=== PATIENT | male | born 1970 | race African-American/Black ===

== ENCOUNTER 2016-12-01 16:51 | Inpatient (IN) ==
[2016-12-01] MEDS ORDERED: SODIUM CHLORIDE 0.9% 1,000 ML IV STA (18:08)
[2016-12-01 18:15] LABS: Basophils % 0.6 % (0.0-0.8); Eosinophils # 0.1 10*3/uL (0.0-0.87); Eosinophils % 1.6 % (0.00-10.9); Hematocrit 20.6 VOL% (42.0-52.0); Immature Granulocytes % 2.4 %; Immature Granulocytes Absolute 0.12 #; Lymphocytes # 1.4 10*3/uL (1.4-4.0); Lymphocytes % 29.3 % (21.2-54.2); Mean Corpuscular HGB Conc 31.6 GM/DL (32-36); Mean Corpuscular Hemoglobin 30 PG (27-34); Mean Corpuscular Volume 93.6 FL (87-102); Monocytes # 1.3 10*3/uL (0.11-0.8); Monocytes % 26.7 % (1.7-12.7); NRBC # 0.67 10*3/uL; Neutrophils # 1.9 10*3/uL (1.4-7.4); Neutrophils % 39.4 % (38.7-73.9); Platelet Count 93 T/CUMM (130-400); Red Cell Distribution Width 19.4 % (9.3-17.3); White Blood Count 4.9 T/CUMM (4-12)
[2016-12-01] MEDS ORDERED: ONDANSETRON 4 MG/2 ML VIAL IV STA (18:15)
[2016-12-01] MEDS ORDERED: MORPHINE 2 MG/1 ML SYRINGE IV STA (18:15)
[2016-12-01 18:18] LABS: Hemoglobin 6.5 GM/DL (14.0-18.0)
[2016-12-01] MEDS ORDERED: ONDANSETRON 4 MG/2 ML VIAL ONE (18:18)
[2016-12-01] MEDS ORDERED: MORPHINE 2 MG/1 ML SYRINGE ONE (18:18)
--- NOTE | 2016-12-01 18:32 | CT Report ---
Exam: CT head without intravenous contrast Clinical History: 46 years Male vertigo, facial numbness Technique: Axial computed tomography images of the head/brain without intravenous contrast. The CT exam was performed using one or more of the following dose reduction techniques: Automated exposure control, adjustment of the mA and/or kV according to patient size, or use of iterative reconstruction technique. Comparison: No relevant comparisons Findings: Brain: Mild microangiopathic small vessel ischemic changes within the superior ventricular white matter. Allen-white matter distinction maintained. No mass effect. No intra or extra-axial hemorrhage. Ventricles: Unremarkable. No ventriculomegaly. Bones/joints: Calvarium is intact Soft tissues: Unremarkable Sinuses: No active paranasal sinus process Mastoid air cells: Unremarkable as visualized. Impression: 1. No acute intracranial abnormality PROCEDURE INTERPRETED AT [facility] DEPARTMENT OF RADIOLOGY Final Report Signed by: Hansel Allen MD
[2016-12-01 18:33] LABS: Platelet Estimate Decreased
[2016-12-01 18:44] LABS: Albumin 3.4 G/DL (3.4-5.0); Bilirubin,Total 0.6 MG/DL (0.2-1.0); Calcium 8.7 MG/DL (8.5-10.1); Magnesium 1.5 MG/DL (1.8-2.4); Osmolality,Calculated 272.7 MOS/KG (273-304); Potassium 3.6 MMOL/L (3.5-5.1); Total Protein 6.4 G/DL (6.4-8.3)
--- NOTE | 2016-12-01 19:17 | Emergency Department Note ---
Arrival - Arrival Chief Complaint: Back Stated Complaint: groin pain ED Nursing Triage Note: pt to room via [facility] stretcher. pt states he has pelvis pain that radiates to groin and bilateral lower ext. x 3 months.. pt was seen at [facility] last night and treated for arthritis per dc papers. Mode of Arrival: Stretcher Limitations: No Limitations Source: Patient, Old Records Reviewed, RN Notes Reviewed Time Seen by Provider: 12/01/16 18:05 - History of Present Illness HPI Narrative: The patient complains of pelvic pain radiating into both upper thighs since June. It has worsened in the past few weeks and he is now barely able to ambulate. He also reports weakness and dizziness upon standing. He was seen for this at [facility] last night and reportedly had a CT which found multiple lesions in the pelvis suggestive of metastatic disease. I have not been able to get that study or the report yet. He also had blood work done which showed a hemoglobin of 7.4 and had a hematocrit of 23.7. He also had a alkaline phosphatase of 626. Patient denies any blood in the stool or melena. He does report a 35-40 pound weight loss since June. He says this is due to numbness of the left side of his tongue. He also says that sometimes the lateral left foot goes numb. The patient was admitted here back in March for hematuria and urinary retention and found to have an enlarged prostate. A CT done at that time makes no mention of any sclerotic bone lesions. The patient says that he had an MRI sometime a few months ago that did show these lesions however he is not really clear on this. He denies any fever, cough, rhinorrhea or other recent illness. He is a heavy drinker and drinks a sixpack plus per day. When admitted here in March he had signs of alcoholic hepatitis. Allergies/Adverse Reactions: Allergies Allergy/AdvReac Type Severity Reaction Status Date / Time No Known Allergies Allergy Verified 12/01/16 17:07 Home Medications: Home Medications Medication Instructions Recorded Confirmed Type Lisinopril 20 mg PO DAILY 03/06/15 03/06/15 History Tamsulosin [Flomax] 0.4 mg PO DAILY 03/06/15 03/06/15 History Ciprofloxacin Tab [Cipro Tab] 500 mg PO BID #14 tablet 03/09/15 Rx HYDROcodone/ACETAMIN 5-325 [Morley 1 tablet PO Q6H PRN #30 tablet 03/09/15 Rx 5-325] amLODIPine [Norvasc] 5 mg PO DAILY #30 tablet 03/09/15 Rx metroNIDAZOLE TAB [Flagyl Cap/Tab] 500 mg PO TID #20 tablet 03/09/15 Rx Review of System - Review of System 12 point system: reviewed and no additional remarkable complaints except as stated - Review of System Constitutional: Present: weakness. Absent: fever Head/Ears/Nose/Throat: Absent: nasal drainage, sore throat Respiratory: Absent: cough, respiratory distress Cardiovascular: Absent: chest pain Gastrointestinal: Absent: abdominal pain, nausea, vomiting Genitourinary male: Absent: dysuria, hematuria Musculoskeletal: Present: back pain, lower back pain, leg pain (Bilateral hips and upper thighs, right greater than left), other (Pelvic pain) Medical,Surgical,& Family Hx - Medical History Cardio: History of: Hypertension Psychological: History of: Psychiatric/Substance Abuse Tx (Alcohol) Genitourinary: History of: Prostate Problems Gastrointestinal: History of: Hepatitis No history of: Gastrointestinal Bleed - Surgical History Surgical History: noncontributory - Family History Family History: Reports;: Family Heart Disease, Family Hypertension, Family Stroke Denies;: Family Diabetes - Social History Smoking Status: Never smoker Frequency of Alcohol Use: None Type of Drug Use: None Exam Physical Examination: GENERAL: Alert. No acute distress. HEENT: Normocephalic and atraumatic. PERRLA. EOMI. Conjunctivae are pale. There is no nasal drainage. No pharyngeal erythema or exudate. NECK: Normal inspection. Supple. No lymphadenopathy or meningismus. LUNGS: No respiratory distress. Clear to auscultation bilaterally, no wheezes, rales or rhonchi. HEART: Regular rate and rhythm. ABDOMEN: Soft, nontender and nondistended with normoactive bowel sounds. There is tenderness of the pubic and pelvic bones. BACK: Normal inspection. SKIN: Color normal. Warm and dry. EXTREMITIES: Nontender. Decreased range of motion both lower extremities at the hip and knees due to pain. Right is worse than left. There is no edema, ecchymosis or deformity. The distal extremities are neurovascularly intact. NEUROLOGICAL/PSYCHIATRIC: Alert and oriented -3 with normal mood and affect. Cranial nerves normal. No motor or sensory deficit. Vital Signs: Vital Signs Temperature 98.1 F 12/01/16 16:50 Pulse Rate 93 H 12/01/16 18:30 Respiratory Rate 18 12/01/16 18:30 Blood Pressure 157/99 12/01/16 18:30 O2 Sat by Pulse Oximetry 99 12/01/16 18:30 Course - Reevaluation(s) Reevaluation #1: I have not been able to get the CT scans from [facility] but from what I have heard this sounds like metastatic disease. The source is unclear but given his past admission here for urinary retention, I would suspect prostate. This will need to be investigated further. Acutely he has anemia and is going to need transfusion. I have discussed the patient with the hospitalist service who will see him and admit. Time: 19:36 Results - Labs CBC & BMP: 12/01/16 18:01 12/01/16 18:01 Disposition Clinical Impression: Anemia, Alcohol abuse, Metastatic disease, Pelvic pain Case discussed with: patient, patient's family Disposition: Still a Patient Condition: Stable Time of Disposition: 19:39
--- NOTE | 2016-12-01 20:11 | Hospitalist History & Physical ---
Assessment and Plan - Time spent with patient Time spent with patient: Greater than 30 minutes (1) Anemia Status: Acute Assessment and plan: Patient does have a significant symptomatic anemia at this time and is tachycardic. Will obtain anemia studies and transfuse 2 units packed red blood cells this evening. Will check stools for occult blood and further diagnostic evaluation based on her pending database. Because of his significant anemia at this time we will provide mechanical DVT prophylaxis only. Current Visit: Yes (2) Metastatic disease Status: Acute Assessment and plan: Patient reportedly has a CT scan from [facility] which reports lesions in the pelvis consistent with possible metastatic disease. Will obtain these records and proceed as indicated. Current Visit: Yes (3) Alcohol abuse Status: Acute Assessment and plan: Patient admits to daily alcohol intake. We will hydrate and provide multivitamin and thiamine supplementation along with benzodiazepines as needed. Current Visit: Yes (4) Hypertension Status: Chronic Assessment and plan: Patient has history of chronic essential hypertension which is currently well controlled. Continue his current medical regimen. Current Visit: No Qualifiers: Hypertension type: essential hypertension Qualified Code(s): I10 - Essential (primary) hypertension History of Present Illness Chief complaint: Bilateral hip and lower extremity pain History of present illness: Mr. Stewart is a 46 year old -[place] male who states he has had approximately 3 month history of lower extremity weakness with progressive pain in his hips radiating down both lower extremities. He states he had approximately 40 pound weight loss in the past 3 months and has had a decreased appetite because of altered taste. He had noticed some bright and dark red blood in the stool approximately 1 month ago however this is resolved. He denies any hematuria but states that he was treated for prostate infection several months ago. Last evening he went to the emergency department at [facility] and was evaluated there and apparently had CT of his abdomen and pelvis which apparently revealed lesions possibly secondary to metastatic disease however we are unable to obtain this report at present. He also states that he has been taken ibuprofen until it no longer controlled his pain, followed by Naprosyn, followed by BC powders which he was told to discontinue last evening. He came back to the emergency room at [facility] for further evaluation and control of his pain. He denies any bowel or bladder incontinence or lower extremity paresthesias. He notes fleeting right and left anterior chest pain lasting only for a few seconds. He also notes some dyspnea which is primarily with exertion. He denies any fever, chills, cough, sputum production, hematuria, dysuria. He does occasionally have some dizziness with sitting upright rapidly. He does not smoke but does admit to drinking almost on a daily basis. He denies any illicit drug use. His only past medical history is significant for hypertension which is controlled with 2 drugs. He has had no prior surgery. His family history is significant for diabetes in his father. His medications have been reviewed and reconciled. He is a full code. Home Medications Medication Instructions Recorded Confirmed Type Lisinopril 20 mg PO DAILY 03/06/15 12/01/16 History Tamsulosin [Flomax] 0.4 mg PO DAILY 03/06/15 12/01/16 History amLODIPine [Norvasc] 5 mg PO DAILY #30 tablet 03/09/15 12/01/16 Rx Allergies Allergy/AdvReac Type Severity Reaction Status Date / Time No Known Allergies Allergy Verified 12/01/16 17:07 Medical,Surgical,& Family Hx - Medical History Cardio: History of: Hypertension Psychological: History of: Psychiatric/Substance Abuse Tx (Alcohol) Genitourinary: History of: Prostate Problems Gastrointestinal: History of: Hepatitis No history of: Gastrointestinal Bleed - Surgical History Additional Surgical History: Patient has had no surgical intervention today. - Family History Family History: Reports;: Family Heart Disease, Family Hypertension, Family Stroke Denies;: Family Diabetes - Social History Smoking Status: Never smoker Frequency of Alcohol Use: Frequently Type of Drug Use: None 12 point system: reviewed and no additional remarkable complaints except as stated Exam - Constitutional Vitals: Period Temp Pulse Resp BP Sys/Lucero Pulse Ox Last 24 Hr 98.1 F-98.1 F 93-113 18-20 152-165/94-110 97-100 General appearance: no acute distress - Head Head exam: Present: normocephalic, atraumatic - Eye Eye exam: Present: EOMI. Absent: nystagmus, scleral icterus Pupils: Present: BISHOP - ENT ENT exam: Present: normal oropharynx - Neck Neck exam: Present: normal inspection. Absent: lymphadenopathy, meningismus, tenderness, thyromegaly - Respiratory Respiratory exam: Present: clear to auscultation bilaterally. Absent: rales, rhonchi, wheezes - Cardiovascular Cardiovascular exam: Present: regular rate and rhythm, tachycardia. Absent: carotid bruit, gallop, JVD, systolic murmur - GI/Abdominal GI/Abdominal exam: Present: normal bowel sounds, soft, other (There is noted tenderness to minimal palpation in the right groin over there is no palpable mass or hernia detected. Femoral pulses are 2+ and intact). Absent: distended , guarding, hernia, mass, organomegaly, tenderness, rebound - Extremities Exam Extremities exam: Present: normal capillary refill. Absent: calf tenderness, edema - Back Exam Back exam: Present: vertebral tenderness (Mild vertebral and paravertebral tenderness approximately L3-4 level). Absent: positive straight leg raise - Neurological Exam Neurological exam: Present: alert, oriented X3, CN II-XII intact, reflexes normal. Absent: motor sensory deficit - Psychiatric Psychiatric exam: Present: normal affect, normal mood. Absent: agitated, anxious - Skin Skin exam: Present: warm, dry. Absent: erythema, petechiae, rash Results - Labs CBC & BMP: 12/01/16 18:01 12/01/16 18:01 Lab Results: I have reviewed the past 24 hour labs - Diagnostic Findings Procedure: CT: report reviewed by me
--- NOTE | 2016-12-01 20:12 | XRay Report ---
Portable chest Exam date: 12/01/2016 6:07 PM Indication: Shortness of breath, cough Comparison: Not available Findings: Cardiomediastinal contours are normal. Question central interstitial coarsening. No acute osseous abnormalities. Visualized upper abdomen demonstrates no acute pathology. Impression: Question interstitial coarsening, cannot exclude diffuse inflammatory process. Findings could be artifactual related to low lung volumes and lordotic positioning. Correlate with upright PA and lateral chest to further characterize PROCEDURE INTERPRETED AT [facility] DEPARTMENT OF RADIOLOGY Final Report Signed by: Hansel Allen MD
[2016-12-01 21:01] LABS: Folate 5.4 NG/ML (5.4-24.0); Vitamin B12 578 PG/ML (211-911)
[2016-12-01] MEDS ORDERED: ZALEPLON 5 MG CAPSULE PO PRN (21:22)
[2016-12-01] MEDS ORDERED: SODIUM CHLORIDE 0.9% 250 ML IV PRN (21:22)
[2016-12-01] MEDS ORDERED: MAGNESIUM SULF RIDER 2 GM in PREMIX 1 EACH IV ONE (21:22)
[2016-12-01] MEDS ORDERED: MULTIVITAMIN INJ 10 ML in SODIUM CHLORIDE 0.45% 1,000 ML IV SCH (21:22)
[2016-12-01] MEDS ORDERED: ONDANSETRON 4 MG/2 ML VIAL IV PRN (21:22)
[2016-12-01] MEDS ORDERED: SODIUM CHLORIDE 0.9% 1,000 ML IV SCH (21:22)
[2016-12-01] MEDS: MORPHINE 2 MG/1 ML SYRINGE IV PRN (21:29)
[2016-12-01] MEDS: LORazepam 1 MG TABLET PO PRN (22:14)
[2016-12-01 22:21] LABS: Total Protein 6.4 G/DL (6.4-8.3)
[2016-12-01] MEDS ORDERED: MULTIVITAMIN IV SCH (23:00)
[2016-12-01] MEDS ORDERED: [UNRECOGNIZED DRUG - OTHER] IV SCH (23:00)
[2016-12-01] MEDS ORDERED: SODIUM CHLORIDE IV SCH (23:00)
[2016-12-02] MEDS: MULTIVITAMIN IV SCH ×4 (00:41→18:03)
[2016-12-02] MEDS: [UNRECOGNIZED DRUG - OTHER] IV SCH ×4 (00:41→18:03)
[2016-12-02] MEDS: SODIUM CHLORIDE IV SCH ×4 (00:41→18:03)
[2016-12-02] MEDS: MORPHINE 2 MG/1 ML SYRINGE IV PRN ×2 (01:09→20:38)
[2016-12-02] MEDS: LORazepam 1 MG TABLET PO PRN ×2 (06:03→19:54)
[2016-12-02 06:31] LABS: Apearance,Urine CLEAR (Clear); Bilirubin,Urine Negative (Negative); Blood, Urine Negative (Negative); Glucose,Urine (UA) Negative (Negative); Ketones,Urine Negative (Negative); Mucus,Urine Occasional /LPF (Occasional); Nitrite,Urine Negative (Negative); Protein,Urine 30 MG/DL; RBC,Urine 2 /HPF (0-4); Urine Color Yellow (Yellow); Urine Specific Gravity 1.016 (1.001-1.035); Urine Urobilinogen < 2.0 EU/DL (0.2-1.0); WBC,Urine 1 /HPF (0-6)
[2016-12-02 07:18] LABS: Basophils # 0.1 10*3/uL (0.0-0.2); Basophils % 1.1 % (0.0-0.8); Eosinophils # 0.1 10*3/uL (0.0-0.87); Eosinophils % 1.4 % (0.00-10.9); Immature Granulocytes % 2.5 %; Immature Granulocytes Absolute 0.11 #; Lymphocytes # 1.1 10*3/uL (1.4-4.0); Lymphocytes % 23.9 % (21.2-54.2); Mean Corpuscular HGB Conc 32.2 GM/DL (32-36); Mean Corpuscular Hemoglobin 30 PG (27-34); Mean Corpuscular Volume 91.5 FL (87-102); Mean Platelet Volume 10.6 FL (9.6-12.0); Monocytes # 1.1 10*3/uL (0.11-0.8); Monocytes % 25.9 % (1.7-12.7); NRBC # 0.53 10*3/uL; Neutrophils % 45.2 % (38.7-73.9); White Blood Count 4.4 T/CUMM (4-12)
[2016-12-02 07:23] LABS: Hemoglobin 8.7 GM/DL (14.0-18.0); Platelet Count 85 T/CUMM (130-400); Red Blood Count 2.95 MC/CUMM (3.8-5.5)
[2016-12-02 07:57] LABS: Band Neutrophils 3 % (0-10); Eosinophils 1 % (0-10); Hypochromasia 1+; Lymphocytes 27 % (20-55); Microcytosis Slight; Nucleated Red Blood Cells 9 (0-5); Ovalocytes Slight; Platelet Estimate Decreased; Segmented Neutrophils 53 % (50-85); Total Cells Counted 100
[2016-12-02 07:58] LABS: Albumin 3.2 G/DL (3.4-5.0); Calcium 8.3 MG/DL (8.5-10.1); Magnesium 2.1 MG/DL (1.8-2.4); Potassium 3.2 MMOL/L (3.5-5.1); Thyroid Stimulating Hormone 0.558 uIU/ml (0.358-3.74); Total Protein 6.2 G/DL (6.4-8.3)
[2016-12-02 08:02] LABS: Hemoglobin A1 (Alkaline) 97.4 % (96.5-98.5); Hemoglobin A2 (Alkaline) 2.6 % (1.5-3.5)
[2016-12-02] MEDS: THIAMINE 200 MG/2 ML VIAL IV SCH (09:19)
[2016-12-02] MEDS: TAMSULOSIN 0.4 MG CAPSULE PO SCH (09:19)
[2016-12-02] MEDS: LISINOPRIL 20 MG TABLET PO SCH (09:19)
[2016-12-02] MEDS: PANTOPRAZOLE 40 MG TABLET PO SCH (09:19)
[2016-12-02] MEDS: amLODIPine 5 MG TABLET PO SCH (09:19)
[2016-12-02 10:02] LABS: Basophils # 0.1 10*3/uL (0.0-0.2); Basophils % 1.3 % (0.0-0.8); Eosinophils # 0.1 10*3/uL (0.0-0.87); Eosinophils % 1.6 % (0.00-10.9); Hematocrit 26.5 VOL% (42.0-52.0); Hemoglobin 8.8 GM/DL (14.0-18.0); Immature Granulocytes % 2.2 %; Lymphocytes # 1.1 10*3/uL (1.4-4.0); Lymphocytes % 23.5 % (21.2-54.2); Mean Corpuscular HGB Conc 33.2 GM/DL (32-36); Mean Corpuscular Hemoglobin 30 PG (27-34); Mean Corpuscular Volume 91.4 FL (87-102); Mean Platelet Volume 10.4 FL (9.6-12.0); Monocytes # 1.2 10*3/uL (0.11-0.8); Monocytes % 27.1 % (1.7-12.7); NRBC # 0.58 10*3/uL; Neutrophils % 44.3 % (38.7-73.9); Platelet Count 75 T/CUMM (130-400); Red Cell Distribution Width 17.1 % (9.3-17.3); White Blood Count 4.5 T/CUMM (4-12)
[2016-12-02 11:05] LABS: Sedimentation Rate-Westergren 70 MM/HR (0-15)
[2016-12-02 11:17] LABS: Total Protein (Chem) 6.4 G/DL (6.4-8.3)
[2016-12-02] MEDS ORDERED: POTASSIUM CHLORIDE 20 MEQ TABLET PO ONE (15:53)
--- NOTE | 2016-12-02 16:03 | Hospitalist Progress Note ---
Assessment and Plan (1) Metastatic disease Status: Acute Assessment and plan: 1)hip and thigh pain that is so severe he has stopped working and has trouble getting around- check bone scan. consult urology. get records from [facility] of [place] and from DR Lee from this summer. Control pain with oral meds and IV if needed. H&H stable No sign of DTs at this time. ativan prn and if ativan needed, start librium. Current Visit: Yes (2) Anemia Status: Acute Current Visit: Yes (3) Alcohol abuse Status: Acute Current Visit: Yes (4) Pelvic pain Status: Acute Current Visit: Yes Hospitalist: Subjective Interval history: MR Stewart's leg pain started on August 31. He went to [facility] adn had hematuria and was referred to Dr Lee. The patient says he doesn't know if he had a PSA and that he had prostatitis at that time. His hematuria resolved. Since that time he continued to have leg pain and was taking BC powder when advil didn;t help anymore. At this point the BCpowders aren't enough either. He has had to stop working. He is and has adult children. His parents are here with him at this time. He had a CT scan at [facility] on 11/30 and the ER and [facility] med attendings comment that the findings look like progressive metastatic disease and that he should have it followed up. We don't have the CT report. I have requested records from Dr Lee and the CT from [facility]. His PSA now is 2950. Sed rate elevated. anemic. Repeat plain films of hips and femurs today. Exam - Constitutional Vitals: Period Temp Pulse Resp BP Sys/Lucero Pulse Ox Last 24 Hr 98 F-99.4 F 93-122 16-20 126-165/87-110 93-100 General appearance: normal weight, no acute distress - Eye Eye exam: Present: EOMI. Absent: scleral icterus - Respiratory Respiratory exam: Present: clear to auscultation bilaterally - Cardiovascular Cardiovascular exam: Present: regular rate and rhythm - GI/Abdominal GI/Abdominal exam: Present: normal bowel sounds, soft. Absent: tenderness - Extremities Exam Extremities exam: Present: other (not tender in hips or femurs where he indicates he has pain). Absent: edema - Back Exam Back exam: Absent: vertebral tenderness Results - Labs CBC & BMP: 12/02/16 06:55 12/02/16 06:55 Lab Results: I have reviewed the past 24 hour labs Quality Measures - VTE Contraindication to Pharmacological VTE Prophylaxis: High Risk of Bleeding
[2016-12-03 06:17] LABS: Basophils % 1.1 % (0.0-0.8); Eosinophils # 0.1 10*3/uL (0.0-0.87); Eosinophils % 1.7 % (0.00-10.9); Hematocrit 24.3 VOL% (42.0-52.0); Immature Granulocytes % 2.2 %; Immature Granulocytes Absolute 0.08 #; Lymphocytes # 1.3 10*3/uL (1.4-4.0); Mean Corpuscular HGB Conc 32.9 GM/DL (32-36); Mean Corpuscular Hemoglobin 30 PG (27-34); Mean Corpuscular Volume 91.7 FL (87-102); Monocytes # 0.8 10*3/uL (0.11-0.8); Monocytes % 22.9 % (1.7-12.7); NRBC # 0.36 10*3/uL; Neutrophils # 1.3 10*3/uL (1.4-7.4); Neutrophils % 35.1 % (38.7-73.9); Red Blood Count 2.65 MC/CUMM (3.8-5.5); Red Cell Distribution Width 17.2 % (9.3-17.3); White Blood Count 3.6 T/CUMM (4-12)
[2016-12-03 06:20] LABS: Platelet Count 86 T/CUMM (130-400)
[2016-12-03 06:51] LABS: Band Neutrophils 1 % (0-10); Giant Platelets Few; Hypochromasia 1+; Lymphocytes 42 % (20-55); Nucleated Red Blood Cells 10 (0-5); Ovalocytes Slight; Platelet Estimate Decreased; Polychromasia Slight; Segmented Neutrophils 41 % (50-85); Total Cells Counted 100
[2016-12-03 06:52] LABS: Atypical Lymphocytes Few
[2016-12-03 06:53] LABS: Alanine Aminotransferase < 9 U/L (16-61); Albumin 2.7 G/DL (3.4-5.0); Alkaline Phosphatase 436 U/L (45-117); Aspartate Amino Transferase 21 U/L (0-37); Blood Urea Nitrogen 6 MG/DL (7-18); Calcium 8.1 MG/DL (8.5-10.1); Glucose 81 MG/DL (74-106); Osmolality,Calculated 273.5 MOS/KG (273-304); Potassium 3.6 MMOL/L (3.5-5.1); Sodium 139 MMOL/L (136-145); Total Protein 5.5 G/DL (6.4-8.3)
[2016-12-03 07:44] LABS: Albumin (SPE) 3.8 G/DL (3.2-5.3); Albumin (SPE) Rel % 59.7 %; Alpha 1 (SPE) 0.4 G/DL (0.1-0.4); Alpha 1 (SPE) Rel % 5.7 %; Alpha 2 (SPE) 0.7 G/DL (0.4-1.0); Alpha 2 (SPE) Rel % 10.9 %; Beta (SPE) 0.8 G/DL (0.5-1.1); Beta (SPE) Rel % 12.6 %; Gamma (SPE) 0.7 G/DL (0.7-1.7); Gamma (SPE) Rel % 11.1 %
[2016-12-03] MEDS ORDERED: LORazepam 2 MG/1 ML VIAL IV PRN (09:22)
[2016-12-03] MEDS: TAMSULOSIN 0.4 MG CAPSULE PO SCH (09:23)
[2016-12-03] MEDS: LISINOPRIL 20 MG TABLET PO SCH (09:23)
[2016-12-03] MEDS: THIAMINE 200 MG/2 ML VIAL IV SCH (09:23)
[2016-12-03] MEDS: amLODIPine 5 MG TABLET PO SCH (09:23)
[2016-12-03] MEDS: PANTOPRAZOLE 40 MG TABLET PO SCH (09:23)
--- NOTE | 2016-12-03 12:03 | Urology Consultation ---
History of Present Illness - Data of Consult Consult date: 12/03/16 - Consult Narrative History of present illness: Mr. Stewart is a 46 year old male The patient is known to me. I saw him originally in the hospital in March 2015 with a history of gross hematuria urinary retention and urinary tract infection. He was treated for BPH and was subsequently able to void. His blood and urine cultures were negative at that time but that was thought to be due to antibiotics he received as an outpatient prior to admission. He had a noncontrast CT of the abdomen and pelvis that showed no urological problems during that admission. His PSA was elevated at 8 and I thought that was probably due to his history of urinary tract infection. The patient came back to the office one time and had a negative urinalysis with resolution of the hematuria and I recommended that he return in 3 months to repeat the PSA to make sure that this had returned to normal as it would if the elevation was due to infection but the patient did not return for follow-up he is now on Flomax as a home medication and is anemic he has an elevated alkaline phosphatase and a marked elevation of his PSA of over 2000. A bone scan is pending. I am going to recommend that we assume this his prostate cancer I will start him on Casodex 3 times a day check an acid phosphatase and we will need to schedule a prostate biopsy which is usually done in the office. If the patient has prostate cancer this is probably high-grade and metastatic and we will need to start him on hormone therapy CC: Rebecca Hendricks MD - Home Medications and Allergies Home Medications: Home Medications Medication Instructions Recorded Confirmed Type Lisinopril 20 mg PO DAILY 03/06/15 12/01/16 History Tamsulosin [Flomax] 0.4 mg PO DAILY 03/06/15 12/01/16 History amLODIPine [Norvasc] 5 mg PO DAILY #30 tablet 03/09/15 12/01/16 Rx Allergies/Adverse Reactions: Allergies Allergy/AdvReac Type Severity Reaction Status Date / Time No Known Allergies Allergy Verified 12/01/16 17:07 Medical,Surgical,& Family Hx - Medical History Cardio: History of: Hypertension Psychological: History of: Psychiatric/Substance Abuse Tx (Alcohol) Respiratory: History of: Asthma (childhood asthma resolved) Genitourinary: History of: Prostate Problems Gastrointestinal: History of: Hepatitis No history of: Gastrointestinal Bleed Musculoskeletal: History of: Musculoskeletal Problems (hip pain) - Family History Family History: Reports;: Family Cancer (2 uncles panreatic and prostate), Family Heart Disease, Family Hypertension, Family Stroke Denies;: Family Diabetes - Social History Smoking Status: Never smoker Frequency of Alcohol Use: Frequently Type of Drug Use: None Exam - Constitutional Vitals: Period Temp Pulse Resp BP Sys/Lucero Pulse Ox Last 24 Hr 97.6 F-99.6 F 90-105 18-20 114-135/73-84 92-96 Results - Labs CBC & BMP: 12/03/16 05:26 12/03/16 05:26
--- NOTE | 2016-12-03 12:08 | Nuclear Medicine Report ---
NM bone scan whole body Indication: Elevated PSA, bone pain Findings: Patient was injected with 30.0 millicuries of technetium 99m MDP intravenously. Total body anterior posterior images were obtained. There is increased activity seen in multiple vertebra, pelvic bones proximal femurs ribs and sternum. There is increased activity in the skull base on the left. There is decreased soft tissue activity. Impression: Multiple areas of increased activity throughout the skeletal system with decreased soft tissue uptake consistent with large amount of osseous metastatic disease usually prostate cancer, (SuperScan). MRI may be useful to evaluate for skull base lesion causing foraminal narrowing. PROCEDURE INTERPRETED AT [facility] DEPARTMENT OF RADIOLOGY Final Report Signed by: Dr. Samy Hickman
--- NOTE | 2016-12-03 13:59 | Hospitalist Progress Note ---
Assessment and Plan (1) Metastatic disease Status: Acute Assessment and plan: 1)likely prostate cancer, metastatic to the bones- bone scan pending. Dr Ring starting casodex. will need prostate biopsy in clinic. continue pain meds. 2)alcohol dependence- drinks a 6 pack with liquor daily. No sign of DTs. ativan if needed, and if it is needed nurses to start librium too. Current Visit: Yes (2) Anemia Status: Acute Current Visit: Yes (3) Alcohol abuse Status: Acute Current Visit: Yes (4) Pelvic pain Status: Acute Current Visit: Yes Hospitalist: Subjective Interval history: Mr Stewart's pain is under better control today. He is eating ok. Dr iRng has seen him and plans to review work up results and start casodex. Exam - Constitutional Vitals: Period Temp Pulse Resp BP Sys/Lucero Pulse Ox Last 24 Hr 97.6 F-99.6 F 90-105 18-20 114-135/73-84 92-96 General appearance: normal weight, no acute distress - Eye Eye exam: Present: EOMI. Absent: scleral icterus - Respiratory Respiratory exam: Present: clear to auscultation bilaterally - Cardiovascular Cardiovascular exam: Present: regular rate and rhythm - GI/Abdominal GI/Abdominal exam: Present: normal bowel sounds, soft. Absent: tenderness - Extremities Exam Extremities exam: Absent: edema Results - Labs CBC & BMP: 12/03/16 05:26 12/03/16 05:26 Lab Results: I have reviewed the past 24 hour labs Quality Measures - VTE Contraindication to Pharmacological VTE Prophylaxis: High Risk of Bleeding
[2016-12-03] MEDS: BICALUTAMIDE 50 MG TABLET PO SCH (20:44)
[2016-12-03] MEDS: MORPHINE 2 MG/1 ML SYRINGE IV PRN (20:51)
--- NOTE | 2016-12-04 07:37 | Urology Progress Note ---
Urology - PN: Subj Interval history: The patient's bone scan is compatible with metastatic disease. The patient's PSA is almost 3000 and there is no evidence of urinary tract infection on urinalysis. Prostatic acid phosphatase is pending. It is okay with me to discharge the patient as needed I am going to send him home on Casodex 50 mg 3 times daily and will set up a prostate biopsy as an outpatient. Once a diagnosis of prostate cancer is confirmed and I am going to recommend either bilateral orchiectomy or Lupron plus continued Casodex Exam - Constitutional Vitals: Period Temp Pulse Resp BP Sys/Lucero Pulse Ox Last 24 Hr 97.6 F-98.9 F 96-100 18-20 127-136/73-87 92-98 Results - Labs CBC & BMP: 12/03/16 05:26 12/03/16 05:26
[2016-12-04] MEDS: BICALUTAMIDE 50 MG TABLET PO SCH ×2 (08:55→14:08)
[2016-12-04] MEDS: PANTOPRAZOLE 40 MG TABLET PO SCH (08:55)
[2016-12-04] MEDS: LISINOPRIL 20 MG TABLET PO SCH (08:55)
[2016-12-04] MEDS: THIAMINE 200 MG/2 ML VIAL IV SCH (08:56)
[2016-12-04] MEDS: amLODIPine 5 MG TABLET PO SCH (08:56)
[2016-12-04] MEDS: TAMSULOSIN 0.4 MG CAPSULE PO SCH (08:56)
[2016-12-04] MEDS: MORPHINE 2 MG/1 ML SYRINGE IV PRN (09:06)
[2016-12-04 13:26] VITALS: BP 139/88
[2016-12-04] MEDS ORDERED: DOCUSATE SODIUM 100 MG CAPSULE PO PRN (14:32)
--- NOTE | 2016-12-04 14:38 | Discharge Summary ---
Hospital Course - Hospital Course Hospital Course: 46-year-old -[place] male was admitted with lower extremity and hip pain. He had a recent CT scan of the abdomen pelvis done at [facility] which was suggestive of metastatic disease. He was taking NSAIDs for pain but it was not controlled, therefore he presented to [place] and was admitted to the hospitalist service. His bone scan was positive for metastatic disease, and PSA was significantly elevated at 2950. He was suspected to have metastatic prostate cancer. Dr. Ring from urology service was following. His pain is better controlled with narcotic. Dr. Ring has okayed his discharge and will do a prostate biopsy in his office, and most of the diagnosis has been confirmed he recommend bilateral orchiectomy Lupron plus Casodex. We will continue Casodex while the prostate biopsyis pending. Patient otherwise is feeling better and has reached maximal hospital benefit and being discharged home. He will see Dr. Ring back in his office in a few weeks. - Time spent with patient Time with patient DS: Less than 30 minutes Diagnosis - Discharge Diagnosis (1) Pelvic pain Status: Resolved Specialty Discharge - Follow Up or Referrals Follow up with: Srini Ring MD [Physician] - 12/07/16 10:15 am (APPT NEXT WEEK-WED, OR WED) Discharge Plan - Discharge Data Condition at Discharge: Stable Discharge Diet: advance to your usual diet Activity: resume usual activities as tolerated Hygiene: no restrictions Weight Bearing at Discharge: full weight bearing - Discharge Medications New Docusate Sodium Cap [Colace Cap] 100 mg PO BID PRN #60 capsule PRN Reason: Constipation Bicalutamide [Casodex] 50 mg PO TID #90 tablet Continue Tamsulosin [Flomax] 0.4 mg PO DAILY Lisinopril 20 mg PO DAILY amLODIPine [Norvasc] 5 mg PO DAILY #30 tablet - Follow Up or Referral Follow Up: Srini Ring MD [Physician] - 12/07/16 10:15 am (APPT NEXT WEEK-WED, OR WED) - Forms/Instructions Exam - Constitutional Vitals: Period Temp Pulse Resp BP Sys/Lucero Pulse Ox Last 24 Hr 97.6 F-98.9 F 89-100 18-20 127-139/72-88 92-98 Exam: General: No Acute Distress HEENT: Normocephalic, atraumatic, Extra ocular movements intact Neck: Supple, No JVD Chest: Clear to auscultation B/L CV: S1 + S2 audible without murmur, gallop or rub Abd: soft, NT, Non-distended, BS + Ext: No edema Skin: No purpura, bruising or rash Rheumatologic: No Joint deformities Neurologic: Awake and alert Discharge Results Procedures and tests throughout hospitalization: Pending Orders 12/01/16 20:20 Occult Blood, Stool Routine 12/03/16 05:23 Prostatic Acid Phosphatase PAP Routine DS: Provider Date of admission: 12/01/16 20:21 Primary care physician: . No PCP Attending physician on admission: Rebecca Hendricks MD Consults: 12/01/16 22:02 Consult to Dietitian [CONS] Routine Reason for Dietitian: Supplements and/or Snacks 12/03/16 09:19 Consult to Physician [CONS] Routine Comment: suspect prostate cancer with bone mets Consulting Provider: Srini Ring Consulting Provider Notified: Yes When should Consulting Provider be notified: Now Consult to Specialist Group: Urology When should Consulting Provider be notified: Now Person Notified: RAFI Date Notified: 12/03/16 Time Notified: 09:41 Discharging clinician: Raman Sheridan MD
== END 2016-12-04 15:40 | disposition home or self-care (01) | DRG 544 ==
LOC: EDUNIT# → EDBD → N.ED 16:51 → N.EDINP 20:21 → SUATTDRO 20:21 → N.EDINP 21:11 → N.4E 21:21
PROVIDERS: ADMIT Internal Medicine; ATTEND Hospitalist

== ENCOUNTER 2018-12-20 18:33 | Inpatient (IN) ==
[2018-12-20] MEDS ORDERED: PANTOPRAZOLE 40 MG VIAL IV STA (18:56)
[2018-12-20] MEDS ORDERED: ONDANSETRON 4 MG/2 ML VIAL IV STA (18:56)
[2018-12-20] MEDS ORDERED: fentaNYL 100 MCG/2 ML VIAL IV STA (18:56)
[2018-12-20 19:14] LABS: Basophils # 0.1 10*3/uL (0.0-0.2); Basophils % 0.6 % (0.0-0.8); Eosinophils % 0.1 % (0.00-10.9); Hematocrit 29.7 VOL% (42.0-52.0); Hemoglobin 8.7 GM/DL (14.0-18.0); Immature Granulocytes Absolute 3.65 #; Lymphocytes % 5.3 % (21.2-54.2); Mean Corpuscular HGB Conc 29.3 GM/DL (32-36); Mean Corpuscular Volume 90.8 FL (87-102); Mean Platelet Volume 10.5 FL (9.6-12.0); Monocytes % 11.3 % (1.7-12.7); NRBC # 0.26 10*3/uL; Neutrophils % 63.7 % (38.7-73.9); Platelet Count 358 T/CUMM (130-400); Red Blood Count 3.27 MC/CUMM (3.8-5.5); Red Cell Distribution Width 18.9 % (9.3-17.3); White Blood Count 19.2 T/CUMM (4-12)
[2018-12-20 19:35] LABS: Alanine Aminotransferase 10 U/L (16-61); Albumin 3.7 G/DL (3.4-5.0); Alkaline Phosphatase 130 U/L (45-117); Amylase 39 U/L (25-115); Aspartate Amino Transferase 8 U/L (0-37); Blood Urea Nitrogen 10 MG/DL (7-18); Calcium 8.5 MG/DL (8.5-10.1); Estimated Glom Filtration Rate 137 ML/MIN; Glucose 105 MG/DL (74-106); Osmolality,Calculated 284.8 MOS/KG (273-304); Total Protein 6.8 G/DL (6.4-8.3); Troponin I < 0.015 NG/ML (0.00-0.045)
[2018-12-20 19:37] LABS: Band Neutrophils 14 % (0-10); Lymphocytes 6 % (20-55); Metamyelocytes 8 %; Myelocytes 4 %; Nucleated Red Blood Cells 3 (0-5); Segmented Neutrophils 63 % (50-85); Total Cells Counted 100
[2018-12-20 19:38] LABS: Anisocytosis 1+; Elliptocytes Few; Macrocytosis 1+; Microcytosis 1+; Platelet Estimate Normal; Poikilocytosis Few; Reactive Lymphocytes Slight; Spherocytes Slight
[2018-12-20 19:39] LABS: Polychromasia Slight
[2018-12-20 20:53] LABS: Apearance,Urine CLEAR (Clear); Bilirubin,Urine Negative (Negative); Blood, Urine Negative (Negative); Glucose,Urine (UA) Negative (Negative); Ketones,Urine Negative (Negative); Mucus,Urine Occasional /LPF (Occasional); Nitrite,Urine Negative (Negative); Protein,Urine Negative; RBC,Urine 2 /HPF (0-4); Renal Epithelial Cells,Urine Occasional /HPF (<1); Urine Color Yellow (Yellow); Urine Specific Gravity 1.018 (1.001-1.035); Urine Urobilinogen < 2.0 EU/DL (0.2-1.0); WBC,Urine 5 /HPF (0-6)
[2018-12-21] MEDS ORDERED: ONDANSETRON 4 MG/2 ML VIAL IV PRN
[2018-12-21] MEDS ORDERED: ACETAMINOPHEN 325 MG TABLET PO PRN
[2018-12-21] MEDS ORDERED: ONDANSETRON ODT 4 MG TABLET PO PRN (00:02)
[2018-12-21] MEDS ORDERED: METHADONE 10 MG TABLET PO PRN (00:02)
[2018-12-21] MEDS ORDERED: oxyCODONE/ACETAMINOPHEN 5-325 MG TABLET PO PRN (00:02)
[2018-12-21] MEDS ORDERED: CYCLOBENZAPRINE 10 MG TABLET PO PRN (00:02)
[2018-12-21] MEDS ORDERED: MECLIZINE 25 MG TABLET PO PRN (00:02)
[2018-12-21] MEDS ORDERED: KETOROLAC 10 MG TABLET PO PRN (00:02)
[2018-12-21] MEDS ORDERED: fentaNYL 50 MCG/HR PATCH TRANSDERM SCH (00:30)
[2018-12-21] MEDS: GABAPENTIN 400 MG CAPSULE PO SCH ×4 (02:03→20:26)
[2018-12-21] MEDS: HYDROmorphone 2 MG/1 ML VIAL IV PRN ×6 (02:06→21:45)
[2018-12-21 07:11] LABS: Basophils # 0.1 10*3/uL (0.0-0.2); Basophils % 0.5 % (0.0-0.8); Eosinophils % 0.1 % (0.00-10.9); Hematocrit 28.7 VOL% (42.0-52.0); Hemoglobin 8.4 GM/DL (14.0-18.0); Immature Granulocytes % 20.3 %; Immature Granulocytes Absolute 3.13 #; Lymphocytes % 6.3 % (21.2-54.2); Mean Corpuscular HGB Conc 29.3 GM/DL (32-36); Mean Corpuscular Volume 91.4 FL (87-102); Mean Platelet Volume 10.2 FL (9.6-12.0); Monocytes % 10.2 % (1.7-12.7); NRBC # 0.25 10*3/uL; Neutrophils % 62.6 % (38.7-73.9); Platelet Count 305 T/CUMM (130-400); Red Blood Count 3.14 MC/CUMM (3.8-5.5); White Blood Count 15.4 T/CUMM (4-12)
[2018-12-21 07:30] LABS: Band Neutrophils 6 % (0-10); Hypochromasia 1+; Lymphocytes 9 % (20-55); Macrocytosis Slight; Nucleated Red Blood Cells 2 (0-5); Ovalocytes Slight; Platelet Estimate Adequate; Polychromasia Slight; Segmented Neutrophils 75 % (50-85); Total Cells Counted 100
[2018-12-21 07:39] LABS: Albumin 3.4 G/DL (3.4-5.0); Bilirubin,Total 0.4 MG/DL (0.2-1.0); Calcium 7.6 MG/DL (8.5-10.1); Osmolality,Calculated 286.8 MOS/KG (273-304); Total Protein 6.3 G/DL (6.4-8.3)
[2018-12-21] MEDS: CALCIUM (CARBONATE)/VITAMIN D 600 MG-400 UNIT TABLET PO SCH ×2 (08:53→20:26)
[2018-12-21] MEDS: POTASSIUM CHLORIDE 10 MEQ TABLET PO SCH (08:54)
[2018-12-21] MEDS: predniSONE 10 MG TABLET PO SCH (08:54)
[2018-12-21] MEDS: TAMSULOSIN 0.4 MG CAPSULE PO SCH (08:54)
[2018-12-21] MEDS: PANTOPRAZOLE 40 MG TABLET PO SCH (08:54)
[2018-12-21] MEDS: ENOXAPARIN 40 MG/0.4 ML SYRINGE SUBCUT SCH (08:54)
[2018-12-21] MEDS ORDERED: AMOXICILLIN/CLAV 875 MG TABLET PO SCH (09:00)
[2018-12-21] MEDS ORDERED: POTASSIUM CHLORIDE 20 MEQ TABLET PO PRN (09:03)
[2018-12-21] MEDS ORDERED: POTASSIUM CHLORIDE RIDER 10 MEQ in PREMIX 1 EACH IV PRN (09:03)
[2018-12-21] MEDS: POTASSIUM CHLORIDE RIDER 20 MEQ in PREMIX 1 EACH IV PRN ×2 (10:03→12:24)
[2018-12-21] MEDS ORDERED: LIDOCAINE 2% VISCOUS 100 ML BOTTLE SWISH/SPIT PRN (18:09)
[2018-12-21] MEDS: VANCOMYCIN INJ 1,250 MG in SODIUM CHLORIDE 0.9% 250 ML IV SCH (18:20)
[2018-12-22] MEDS: VANCOMYCIN INJ 1,250 MG in SODIUM CHLORIDE 0.9% 250 ML IV SCH ×2 (02:18→09:06)
[2018-12-22] MEDS: HYDROmorphone 2 MG/1 ML VIAL IV PRN ×3 (02:22→14:18)
[2018-12-22] MEDS: predniSONE 10 MG TABLET PO SCH (09:00)
[2018-12-22] MEDS: GABAPENTIN 400 MG CAPSULE PO SCH ×2 (09:00→14:17)
[2018-12-22] MEDS: PANTOPRAZOLE 40 MG TABLET PO SCH (09:00)
[2018-12-22] MEDS: CALCIUM (CARBONATE)/VITAMIN D 600 MG-400 UNIT TABLET PO SCH (09:00)
[2018-12-22] MEDS: TAMSULOSIN 0.4 MG CAPSULE PO SCH (09:00)
[2018-12-22] MEDS: ENOXAPARIN 40 MG/0.4 ML SYRINGE SUBCUT SCH (09:01)
[2018-12-22] MEDS: POTASSIUM CHLORIDE 10 MEQ TABLET PO SCH (09:01)
[2018-12-22 16:18] VITALS: BP 139/90
[2018-12-22] MEDS ORDERED: HEPARIN LOCK FLUSH 500 UNIT/5 ML SYRINGE IV ONE (16:29)
== END 2018-12-22 17:05 | disposition home or self-care (01) | DRG 392 ==
LOC: N.EDINP 18:33 → N.ED 18:33 → SUATTDRO 12-21 → N.4E 12-21 00:29 → UNDODISIN 12-22 16:15
PROVIDERS: ADMIT Internal Medicine; ATTEND Hospitalist

== ENCOUNTER 2019-01-28 22:29 | Observation (INO) ==
[2019-01-28] MEDS ORDERED: ONDANSETRON 4 MG/2 ML VIAL IV ONE (23:21)
[2019-01-28] MEDS ORDERED: HYDROmorphone 2 MG/1 ML VIAL IV STA (23:21)
[2019-01-29] MEDS ORDERED: MORPHINE 4 MG/1 ML VIAL IV PRN (00:13)
[2019-01-29] MEDS ORDERED: ZALEPLON 5 MG CAPSULE PO PRN (00:13)
[2019-01-29] MEDS ORDERED: ONDANSETRON 4 MG/2 ML VIAL IV PRN (00:13)
[2019-01-29] MEDS ORDERED: guaiFENesin/DM ER 600-30 MG TABLET PO PRN (00:13)
[2019-01-29] MEDS ORDERED: hydrALAZINE 20 MG/1 ML VIAL IV PRN (00:16)
[2019-01-29] MEDS: HYDROmorphone 2 MG/1 ML VIAL IV PRN ×2 (03:46→07:27)
[2019-01-29 05:35] LABS: Basophils % 0.3 % (0.0-0.8); Eosinophils % 0.1 % (0.00-10.9); Hematocrit 24.5 VOL% (42.0-52.0); Hemoglobin 7.2 GM/DL (14.0-18.0); Immature Granulocytes % 1.3 %; Lymphocytes # 0.6 10*3/uL (1.4-4.0); Lymphocytes % 7.5 % (21.2-54.2); Mean Corpuscular HGB Conc 29.4 GM/DL (32-36); Mean Corpuscular Volume 92.5 FL (87-102); Mean Platelet Volume 10.1 FL (9.6-12.0); Monocytes % 16.8 % (1.7-12.7); Platelet Count 296 T/CUMM (130-400); Red Blood Count 2.65 MC/CUMM (3.8-5.5); Red Cell Distribution Width 20.5 % (9.3-17.3); White Blood Count 7.5 T/CUMM (4-12)
[2019-01-29 05:59] LABS: Albumin 2.9 G/DL (3.4-5.0); Bilirubin,Total 0.8 MG/DL (0.2-1.0); Calcium 7.6 MG/DL (8.5-10.1); Osmolality,Calculated 279.4 MOS/KG (273-304); Total Protein 6.2 G/DL (6.4-8.3)
[2019-01-29 06:09] LABS: Band Neutrophils 9 % (0-10); Lymphocytes 3 % (20-55); Segmented Neutrophils 65 % (50-85); Total Cells Counted 100
[2019-01-29 06:10] LABS: Platelet Estimate Normal; Stomatocytes Few
[2019-01-29] MEDS: PANTOPRAZOLE 40 MG TABLET PO SCH (09:00)
[2019-01-29] MEDS: ENOXAPARIN 40 MG/0.4 ML SYRINGE SUBCUT SCH (09:00)
[2019-01-29] MEDS ORDERED: METHADONE 10 MG TABLET PO PRN (09:38)
[2019-01-29] MEDS ORDERED: ONDANSETRON ODT 4 MG TABLET PO PRN (09:38)
[2019-01-29] MEDS ORDERED: CYCLOBENZAPRINE 10 MG TABLET PO PRN (09:38)
[2019-01-29] MEDS ORDERED: MECLIZINE 25 MG TABLET PO PRN (09:38)
[2019-01-29] MEDS: fentaNYL 50 MCG/HR PATCH TRANSDERM SCH (10:27)
[2019-01-29] MEDS: oxyCODONE/ACETAMINOPHEN 5-325 MG TABLET PO PRN ×2 (12:21→20:13)
[2019-01-29] MEDS ORDERED: SODIUM CHLORIDE 0.9% 1,000 ML IV PRN (13:15)
[2019-01-29] MEDS: GABAPENTIN 400 MG CAPSULE PO SCH ×2 (14:37→20:12)
[2019-01-29] MEDS: LISINOPRIL 20 MG TABLET PO SCH (20:12)
[2019-01-29] MEDS: SIMVASTATIN 10 MG TABLET PO SCH (20:12)
[2019-01-30] MEDS: HYDROmorphone 2 MG/1 ML VIAL IV PRN ×2 (01:41→20:39)
[2019-01-30 05:42] LABS: Basophils % 0.2 % (0.0-0.8); Eosinophils # 0.1 10*3/uL (0.0-0.87); Eosinophils % 1.1 % (0.00-10.9); Hematocrit 32.2 VOL% (42.0-52.0); Hemoglobin 9.8 GM/DL (14.0-18.0); Immature Granulocytes % 2.1 %; Immature Granulocytes Absolute 0.14 #; Lymphocytes # 0.5 10*3/uL (1.4-4.0); Lymphocytes % 8.1 % (21.2-54.2); Mean Corpuscular HGB Conc 30.4 GM/DL (32-36); Mean Platelet Volume 9.9 FL (9.6-12.0); Monocytes % 16.2 % (1.7-12.7); Neutrophils % 72.3 % (38.7-73.9); Platelet Count 318 T/CUMM (130-400); Red Blood Count 3.54 MC/CUMM (3.8-5.5); Red Cell Distribution Width 18.1 % (9.3-17.3); White Blood Count 6.6 T/CUMM (4-12)
[2019-01-30 06:08] LABS: Hypochromasia 1+; Lymphocytes 8 % (20-55); Platelet Estimate Adequate; Segmented Neutrophils 77 % (50-85); Total Cells Counted 100
[2019-01-30 06:09] LABS: Microcytosis Slight
[2019-01-30] MEDS ORDERED: KETOROLAC 30 MG/1 ML VIAL IV ONE (08:00)
[2019-01-30] MEDS ORDERED: DOCUSATE SODIUM 100 MG CAPSULE PO PRN (08:01)
[2019-01-30] MEDS: TAMSULOSIN 0.4 MG CAPSULE PO SCH (08:39)
[2019-01-30] MEDS: POLYETHYLENE GLYCOL POWDER 17 GM PACK PO SCH (08:39)
[2019-01-30] MEDS: GABAPENTIN 400 MG CAPSULE PO SCH ×3 (08:39→20:42)
[2019-01-30] MEDS: PANTOPRAZOLE 40 MG TABLET PO SCH (08:39)
[2019-01-30] MEDS: ENOXAPARIN 40 MG/0.4 ML SYRINGE SUBCUT SCH (08:43)
[2019-01-30] MEDS ORDERED: traMADol 50 MG TABLET PO PRN (10:48)
[2019-01-30] MEDS ORDERED: ACETAMINOPHEN 325 MG TABLET PO PRN (10:48)
[2019-01-30] MEDS ORDERED: ONDANSETRON 4 MG/2 ML VIAL IV PRN (10:48)
[2019-01-30] MEDS ORDERED: guaiFENesin 200 MG/10 ML UDCUP PO PRN (10:48)
[2019-01-30] MEDS ORDERED: PROMETHAZINE INJ 25 MG in SODIUM CHLORIDE 0.9% 50 ML IV PRN (10:48)
[2019-01-30] MEDS ORDERED: LOPERAMIDE 2 MG CAPSULE PO PRN ×2 (10:48)
[2019-01-30] MEDS ORDERED: chlorproMAZINE 25 MG TABLET PO PRN (10:48)
[2019-01-30] MEDS ORDERED: LACTULOSE 20 GM/30 ML UDCUP PO PRN (10:48)
[2019-01-30] MEDS ORDERED: MAGNESIUM HYDROXIDE SUSP 30 ML UDCUP PO PRN (10:48)
[2019-01-30] MEDS ORDERED: chlorproMAZINE INJ 50 MG in SODIUM CHLORIDE 0.9% 100 ML IV PRN (10:48)
[2019-01-30] MEDS ORDERED: chlorproMAZINE INJ 25 MG in SODIUM CHLORIDE 0.9% 100 ML IV PRN (10:48)
[2019-01-30] MEDS ORDERED: ALPRAZolam 0.25 MG TABLET PO PRN (10:48)
[2019-01-30] MEDS ORDERED: MYLANTA/LIDO VISC 2:1 300 ML BOTTLE SWISH/SWAL PRN (10:48)
[2019-01-30] MEDS ORDERED: MYLANTA/LIDO VISC 2:1 300 ML BOTTLE SWISH/SPIT PRN (10:48)
[2019-01-30] MEDS ORDERED: diphenhydrAMINE CAP 25 MG CAPSULE PO PRN (10:48)
[2019-01-30] MEDS ORDERED: ALUMINUM/MAGNES/SIMETH MAX STR 30 ML UDCUP PO PRN (10:48)
[2019-01-30] MEDS ORDERED: LORazepam 2 MG/1 ML VIAL IV ONE (10:52)
[2019-01-30] MEDS: SIMETHICONE CHEW 125 MG TABLET PO PRN (17:08)
[2019-01-30] MEDS: KETOROLAC 15 MG/1 ML VIAL IV PRN (18:06)
[2019-01-30] MEDS: SIMVASTATIN 10 MG TABLET PO SCH (20:41)
[2019-01-30] MEDS: clonazePAM 0.5 MG TABLET PO SCH (20:41)
[2019-01-30] MEDS: TEMAZEPAM 7.5 MG CAPSULE PO PRN (20:41)
[2019-01-30] MEDS: LISINOPRIL 20 MG TABLET PO SCH (20:41)
[2019-01-30] MEDS: LACTULOSE 20 GM/30 ML UDCUP PO PRN (20:42)
[2019-01-31] MEDS: LACTULOSE 20 GM/30 ML UDCUP PO PRN ×2 (01:51→20:45)
[2019-01-31 05:41] LABS: Basophils % 0.2 % (0.0-0.8); Eosinophils # 0.1 10*3/uL (0.0-0.87); Hematocrit 33.8 VOL% (42.0-52.0); Hemoglobin 10.3 GM/DL (14.0-18.0); Immature Granulocytes % 1.3 %; Immature Granulocytes Absolute 0.11 #; Lymphocytes # 0.5 10*3/uL (1.4-4.0); Lymphocytes % 5.6 % (21.2-54.2); Mean Corpuscular HGB Conc 30.5 GM/DL (32-36); Mean Corpuscular Volume 90.9 FL (87-102); Neutrophils % 78.9 % (38.7-73.9); Platelet Count 388 T/CUMM (130-400); Red Blood Count 3.72 MC/CUMM (3.8-5.5); Red Cell Distribution Width 18.5 % (9.3-17.3); White Blood Count 8.2 T/CUMM (4-12)
[2019-01-31 06:12] LABS: Calcium 8.4 MG/DL (8.5-10.1); Osmolality,Calculated 287.1 MOS/KG (273-304)
[2019-01-31] MEDS: GABAPENTIN 400 MG CAPSULE PO SCH ×3 (10:41→20:45)
[2019-01-31] MEDS: PANTOPRAZOLE 40 MG TABLET PO SCH (10:42)
[2019-01-31] MEDS: TAMSULOSIN 0.4 MG CAPSULE PO SCH (10:42)
[2019-01-31] MEDS: METHADONE 10 MG TABLET PO SCH (10:42)
[2019-01-31] MEDS: HYDROmorphone 2 MG/1 ML VIAL IV PRN ×2 (10:44→15:24)
[2019-01-31] MEDS: ENOXAPARIN 40 MG/0.4 ML SYRINGE SUBCUT SCH (10:46)
[2019-01-31] MEDS: POLYETHYLENE GLYCOL POWDER 17 GM PACK PO SCH (13:09)
[2019-01-31] MEDS: SIMETHICONE CHEW 125 MG TABLET PO PRN (20:44)
[2019-01-31] MEDS: TEMAZEPAM 7.5 MG CAPSULE PO PRN (20:44)
[2019-01-31] MEDS: SIMVASTATIN 10 MG TABLET PO SCH (20:44)
[2019-01-31] MEDS: clonazePAM 0.5 MG TABLET PO SCH (20:44)
[2019-01-31] MEDS: LISINOPRIL 20 MG TABLET PO SCH (20:44)
[2019-01-31] MEDS: DOCUSATE SODIUM 100 MG CAPSULE PO SCH (20:45)
[2019-01-31] MEDS: KETOROLAC 15 MG/1 ML VIAL IV PRN (20:45)
[2019-02-01 05:02] LABS: Basophils % 0.4 % (0.0-0.8); Eosinophils # 0.1 10*3/uL (0.0-0.87); Eosinophils % 0.9 % (0.00-10.9); Hematocrit 30.2 VOL% (42.0-52.0); Hemoglobin 9.1 GM/DL (14.0-18.0); Immature Granulocytes % 1.1 %; Immature Granulocytes Absolute 0.06 #; Lymphocytes # 0.5 10*3/uL (1.4-4.0); Lymphocytes % 9.3 % (21.2-54.2); Mean Corpuscular HGB Conc 30.1 GM/DL (32-36); Mean Corpuscular Volume 91.8 FL (87-102); Mean Platelet Volume 10.1 FL (9.6-12.0); Monocytes % 19.3 % (1.7-12.7); Platelet Count 353 T/CUMM (130-400); Red Blood Count 3.29 MC/CUMM (3.8-5.5); Red Cell Distribution Width 18.5 % (9.3-17.3); White Blood Count 5.7 T/CUMM (4-12)
[2019-02-01 05:23] LABS: Calcium 7.7 MG/DL (8.5-10.1); Osmolality,Calculated 282.3 MOS/KG (273-304)
[2019-02-01 05:37] LABS: Eosinophils 1 % (0-10); Hypochromasia 1+; Lymphocytes 8 % (20-55); Platelet Estimate Adequate; Segmented Neutrophils 71 % (50-85); Total Cells Counted 100
[2019-02-01] MEDS: ENOXAPARIN 40 MG/0.4 ML SYRINGE SUBCUT SCH (08:35)
[2019-02-01] MEDS: oxyCODONE/ACETAMINOPHEN 5-325 MG TABLET PO PRN (08:35)
[2019-02-01] MEDS: GABAPENTIN 400 MG CAPSULE PO SCH (08:35)
[2019-02-01] MEDS: TAMSULOSIN 0.4 MG CAPSULE PO SCH (08:35)
[2019-02-01] MEDS: POLYETHYLENE GLYCOL POWDER 17 GM PACK PO SCH (08:35)
[2019-02-01] MEDS: METHADONE 10 MG TABLET PO SCH (08:36)
[2019-02-01] MEDS: DOCUSATE SODIUM 100 MG CAPSULE PO SCH (08:36)
[2019-02-01] MEDS: PANTOPRAZOLE 40 MG TABLET PO SCH (08:36)
[2019-02-01] MEDS: SIMETHICONE CHEW 125 MG TABLET PO PRN (08:50)
[2019-02-01] MEDS: fentaNYL 50 MCG/HR PATCH TRANSDERM SCH (11:13)
[2019-02-01] MEDS ORDERED: HEPARIN LOCK FLUSH 500 UNIT/5 ML SYRINGE IV ONE (12:32)
[2019-02-01 12:57] VITALS: BP 122/83
== END 2019-02-01 13:15 | disposition home or self-care (01) ==
LOC: N.EDINP 22:29 → N.ED 22:29 → SUATTDRO 01-29 00:13 → N.4E 01-29 00:47
PROVIDERS: ADMIT Internal Medicine Cardiovascular Disease; ATTEND Internal Medicine

== ENCOUNTER 2019-02-27 03:41 | Inpatient (IN) ==
[2019-02-27] MEDS ORDERED: MORPHINE 4 MG/1 ML VIAL IV STA (04:32)
[2019-02-27] MEDS ORDERED: SODIUM CHLORIDE 0.9% 1,000 ML IV STA (04:32)
[2019-02-27] MEDS ORDERED: HYDROmorphone 2 MG/1 ML VIAL IV STA ×4 (05:46→10:22)
[2019-02-27] MEDS ORDERED: ONDANSETRON 4 MG/2 ML VIAL ONE (07:32)
[2019-02-27] MEDS ORDERED: ONDANSETRON 4 MG/2 ML VIAL IV STA (07:32)
[2019-02-27 08:00] LABS: Basophils % 0.3 % (0.0-0.8); Eosinophils % 0.2 % (0.00-10.9); Hematocrit 27.7 VOL% (42.0-52.0); Hemoglobin 8.3 GM/DL (14.0-18.0); Immature Granulocytes % 2.9 %; Immature Granulocytes Absolute 0.19 #; Lymphocytes # 0.4 10*3/uL (1.4-4.0); Lymphocytes % 5.6 % (21.2-54.2); Mean Corpuscular Volume 89.1 FL (87-102); Mean Platelet Volume 9.8 FL (9.6-12.0); Monocytes % 19.1 % (1.7-12.7); NRBC # 0.02 10*3/uL; Neutrophils % 71.9 % (38.7-73.9); Platelet Count 320 T/CUMM (130-400); Red Blood Count 3.11 MC/CUMM (3.8-5.5); Red Cell Distribution Width 18.6 % (9.3-17.3); White Blood Count 6.6 T/CUMM (4-12)
[2019-02-27 08:12] LABS: Apearance,Urine CLEAR (Clear); Bilirubin,Urine Negative (Negative); Blood, Urine Negative (Negative); Glucose,Urine (UA) Negative (Negative); Ketones,Urine 5 mg/dL (Negative); Mucus,Urine Occasional /LPF (Occasional); Nitrite,Urine Negative (Negative); Protein,Urine Negative; RBC,Urine 1 /HPF (0-4); Squamous Epithelial Cell,Urine Occasional /HPF (0-10); Urine Color Yellow (Yellow); Urine Specific Gravity 1.014 (1.001-1.035); Urine Urobilinogen < 2.0 EU/DL (0.2-1.0); WBC,Urine <1 /HPF (0-6)
[2019-02-27 08:18] LABS: Albumin 3.1 G/DL (3.4-5.0); Bilirubin,Total 0.4 MG/DL (0.2-1.0); Calcium 7.8 MG/DL (8.5-10.1); Osmolality,Calculated 274.5 MOS/KG (273-304); Total Protein 6.7 G/DL (6.4-8.3)
[2019-02-27 08:33] LABS: Band Neutrophils 21 % (0-10); Lymphocytes 6 % (20-55); Metamyelocytes 3 %; Nucleated Red Blood Cells 1 (0-5); Platelet Estimate Normal; Segmented Neutrophils 58 % (50-85); Total Cells Counted 100
[2019-02-27 08:35] LABS: Anisocytosis Slight
[2019-02-27] MEDS ORDERED: BISACODYL 5 MG TABLET PO PRN (10:08)
[2019-02-27] MEDS ORDERED: diphenhydrAMINE CAP 25 MG CAPSULE PO PRN (10:08)
[2019-02-27] MEDS ORDERED: guaiFENesin/DM ER 600-30 MG TABLET PO PRN (10:08)
[2019-02-27] MEDS ORDERED: ONDANSETRON 4 MG/2 ML VIAL IV PRN (10:08)
[2019-02-27] MEDS: HYDROmorphone 2 MG/1 ML VIAL IV PRN ×2 (11:38→17:17)
[2019-02-27] MEDS: fentaNYL 50 MCG/HR PATCH TRANSDERM SCH (11:42)
[2019-02-27] MEDS: ENOXAPARIN 40 MG/0.4 ML SYRINGE SUBCUT SCH (12:11)
[2019-02-27] MEDS: oxyCODONE/ACETAMINOPHEN 5-325 MG TABLET PO PRN ×2 (13:29→20:17)
[2019-02-27] MEDS: SODIUM CHLORIDE 0.9% 1,000 ML IV SCH (13:58)
[2019-02-27] MEDS: IBUPROFEN 800 MG TABLET PO SCH ×2 (15:16→20:17)
[2019-02-27] MEDS: GABAPENTIN 400 MG CAPSULE PO SCH ×2 (15:16→20:17)
[2019-02-27] MEDS: DOCUSATE SODIUM 100 MG CAPSULE PO SCH (20:16)
[2019-02-27] MEDS: CALCIUM (CARBONATE)/VITAMIN D 600 MG-400 UNIT TABLET PO SCH (20:16)
[2019-02-27] MEDS: SIMVASTATIN 10 MG TABLET PO SCH (20:17)
[2019-02-27] MEDS: clonazePAM 0.5 MG TABLET PO SCH (20:17)
[2019-02-27] MEDS: POLYETHYLENE GLYCOL POWDER 17 GM PACK PO SCH (20:18)
[2019-02-27] MEDS: TEMAZEPAM 7.5 MG CAPSULE PO PRN (20:18)
[2019-02-27] MEDS ORDERED: lisinopriL 20 MG TABLET PO SCH (21:00)
[2019-02-28] MEDS: SODIUM CHLORIDE 0.9% 1,000 ML IV SCH (02:12)
[2019-02-28] MEDS: HYDROmorphone 2 MG/1 ML VIAL IV PRN ×2 (03:50→18:49)
[2019-02-28 05:26] LABS: Basophils % 0.4 % (0.0-0.8); Eosinophils % 0.6 % (0.00-10.9); Hemoglobin 7.5 GM/DL (14.0-18.0); Immature Granulocytes % 3.7 %; Immature Granulocytes Absolute 0.17 #; Lymphocytes # 0.4 10*3/uL (1.4-4.0); Lymphocytes % 9.1 % (21.2-54.2); Mean Corpuscular HGB Conc 28.8 GM/DL (32-36); Mean Corpuscular Volume 91.2 FL (87-102); Mean Platelet Volume 10.4 FL (9.6-12.0); Monocytes % 26.1 % (1.7-12.7); NRBC # 0.04 10*3/uL; Neutrophils % 60.1 % (38.7-73.9); Platelet Count 318 T/CUMM (130-400); Red Blood Count 2.85 MC/CUMM (3.8-5.5); Red Cell Distribution Width 18.6 % (9.3-17.3); White Blood Count 4.6 T/CUMM (4-12)
[2019-02-28 05:56] LABS: Hypochromasia 1+; Lymphocytes 9 % (20-55); Nucleated Red Blood Cells 1 (0-5); Ovalocytes Slight; Platelet Estimate Adequate; Segmented Neutrophils 72 % (50-85); Total Cells Counted 100
[2019-02-28] MEDS: oxyCODONE/ACETAMINOPHEN 5-325 MG TABLET PO PRN ×3 (07:02→17:21)
[2019-02-28] MEDS: IBUPROFEN 800 MG TABLET PO SCH ×3 (08:49→20:48)
[2019-02-28] MEDS: TAMSULOSIN 0.4 MG CAPSULE PO SCH (08:49)
[2019-02-28] MEDS: GABAPENTIN 400 MG CAPSULE PO SCH ×3 (08:49→20:49)
[2019-02-28] MEDS: PANTOPRAZOLE 40 MG TABLET PO SCH (08:49)
[2019-02-28] MEDS: DOCUSATE SODIUM 100 MG CAPSULE PO SCH ×2 (08:50→20:48)
[2019-02-28] MEDS: CALCIUM (CARBONATE)/VITAMIN D 600 MG-400 UNIT TABLET PO SCH ×2 (08:50→20:48)
[2019-02-28] MEDS: POLYETHYLENE GLYCOL POWDER 17 GM PACK PO SCH ×2 (08:50→20:50)
[2019-02-28] MEDS ORDERED: HYDROmorphone 2 MG/1 ML VIAL IV PRN (11:18)
[2019-02-28] MEDS: ENOXAPARIN 40 MG/0.4 ML SYRINGE SUBCUT SCH (11:31)
[2019-02-28] MEDS: SIMVASTATIN 10 MG TABLET PO SCH (20:48)
[2019-02-28] MEDS: clonazePAM 0.5 MG TABLET PO SCH (20:49)
[2019-02-28] MEDS: TEMAZEPAM 7.5 MG CAPSULE PO PRN (20:49)
[2019-02-28] MEDS: lisinopriL 10 MG TABLET PO SCH (20:49)
[2019-03-01] MEDS: oxyCODONE/ACETAMINOPHEN 5-325 MG TABLET PO PRN ×2 (00:27→12:18)
[2019-03-01] MEDS: HYDROmorphone 2 MG/1 ML VIAL IV PRN ×5 (03:36→21:28)
[2019-03-01 07:10] LABS: Basophils % 0.2 % (0.0-0.8); Eosinophils % 0.2 % (0.00-10.9); Hematocrit 26.8 VOL% (42.0-52.0); Immature Granulocytes % 4.7 %; Immature Granulocytes Absolute 0.25 #; Lymphocytes # 0.4 10*3/uL (1.4-4.0); Lymphocytes % 7.5 % (21.2-54.2); Mean Corpuscular HGB Conc 29.9 GM/DL (32-36); Mean Corpuscular Volume 89.3 FL (87-102); Mean Platelet Volume 10.5 FL (9.6-12.0); Monocytes % 21.3 % (1.7-12.7); NRBC # 0.02 10*3/uL; Neutrophils % 66.1 % (38.7-73.9); Platelet Count 329 T/CUMM (130-400); Red Cell Distribution Width 18.6 % (9.3-17.3); White Blood Count 5.4 T/CUMM (4-12)
[2019-03-01 08:04] LABS: Band Neutrophils 15 % (0-10); Lymphocytes 13 % (20-55); Platelet Estimate Normal; Segmented Neutrophils 53 % (50-85); Total Cells Counted 100
[2019-03-01 08:05] LABS: Anisocytosis 1+; Ovalocytes Few; Poikilocytosis 1+; Tear Drop Cells Few
[2019-03-01 08:06] LABS: Burr Cells Few
[2019-03-01] MEDS: IBUPROFEN 800 MG TABLET PO SCH ×3 (08:53→21:22)
[2019-03-01] MEDS: GABAPENTIN 400 MG CAPSULE PO SCH ×3 (08:53→21:22)
[2019-03-01] MEDS: PANTOPRAZOLE 40 MG TABLET PO SCH (08:53)
[2019-03-01] MEDS: DOCUSATE SODIUM 100 MG CAPSULE PO SCH ×2 (08:53→21:22)
[2019-03-01] MEDS: POLYETHYLENE GLYCOL POWDER 17 GM PACK PO SCH ×2 (08:53→21:20)
[2019-03-01] MEDS: TAMSULOSIN 0.4 MG CAPSULE PO SCH (08:54)
[2019-03-01] MEDS ORDERED: MAGNESIUM HYDROXIDE SUSP 30 ML UDCUP PO SCH (09:00)
[2019-03-01] MEDS: CALCIUM (CARBONATE)/VITAMIN D 600 MG-400 UNIT TABLET PO SCH ×2 (09:05→21:22)
[2019-03-01] MEDS: ENOXAPARIN 40 MG/0.4 ML SYRINGE SUBCUT SCH (12:18)
[2019-03-01] MEDS: TEMAZEPAM 7.5 MG CAPSULE PO PRN (19:41)
[2019-03-01] MEDS: clonazePAM 0.5 MG TABLET PO SCH (21:22)
[2019-03-01] MEDS: SIMVASTATIN 10 MG TABLET PO SCH (21:22)
[2019-03-01] MEDS: lisinopriL 10 MG TABLET PO SCH (21:22)
[2019-03-02] MEDS: HYDROmorphone 2 MG/1 ML VIAL IV PRN ×2 (04:30→12:17)
[2019-03-02] MEDS: oxyCODONE/ACETAMINOPHEN 5-325 MG TABLET PO PRN (06:24)
[2019-03-02] MEDS ORDERED: METHADONE 10 MG TABLET PO PRN (07:17)
[2019-03-02] MEDS: PANTOPRAZOLE 40 MG TABLET PO SCH (08:37)
[2019-03-02] MEDS: IBUPROFEN 800 MG TABLET PO SCH (08:37)
[2019-03-02] MEDS: TAMSULOSIN 0.4 MG CAPSULE PO SCH (08:37)
[2019-03-02] MEDS: CALCIUM (CARBONATE)/VITAMIN D 600 MG-400 UNIT TABLET PO SCH (08:37)
[2019-03-02] MEDS: DOCUSATE SODIUM 100 MG CAPSULE PO SCH (08:38)
[2019-03-02] MEDS: fentaNYL 50 MCG/HR PATCH TRANSDERM SCH (08:38)
[2019-03-02] MEDS: GABAPENTIN 400 MG CAPSULE PO SCH (08:38)
[2019-03-02] MEDS: POLYETHYLENE GLYCOL POWDER 17 GM PACK PO SCH (08:39)
[2019-03-02] MEDS: ENOXAPARIN 40 MG/0.4 ML SYRINGE SUBCUT SCH (11:50)
[2019-03-02 12:06] VITALS: BP 122/84
[2019-03-02] MEDS ORDERED: HEPARIN LOCK FLUSH 500 UNIT/5 ML SYRINGE IV ONE (13:02)
== END 2019-03-02 14:30 | disposition home health service (06) | DRG 556 ==
LOC: N.EDINP 03:41 → N.ED 03:41 → N.EDINP 11:09 → N.4E 11:24
PROVIDERS: ADMIT Internal Medicine; ATTEND Internal Medicine

== ENCOUNTER 2019-03-06 12:37 | Inpatient (IN) ==
[2019-03-06] MEDS ORDERED: PROMETHAZINE 25 MG TABLET PO PRN (13:20)
[2019-03-06] MEDS ORDERED: DOCUSATE SODIUM 100 MG CAPSULE PO PRN (13:20)
[2019-03-06] MEDS ORDERED: METHADONE 10 MG TABLET PO PRN (14:08)
[2019-03-06] MEDS ORDERED: MECLIZINE 25 MG TABLET PO PRN (14:08)
[2019-03-06 14:09] LABS: Basophils % 0.1 % (0.0-0.8); Eosinophils % 0.1 % (0.00-10.9); Hematocrit 24.7 VOL% (42.0-52.0); Hemoglobin 7.3 GM/DL (14.0-18.0); Immature Granulocytes % 0.8 %; Immature Granulocytes Absolute 0.09 #; Lymphocytes # 0.6 10*3/uL (1.4-4.0); Lymphocytes % 4.9 % (21.2-54.2); Mean Corpuscular HGB Conc 29.6 GM/DL (32-36); Mean Corpuscular Volume 89.5 FL (87-102); Mean Platelet Volume 9.9 FL (9.6-12.0); Monocytes % 11.9 % (1.7-12.7); Neutrophils % 82.2 % (38.7-73.9); Platelet Count 340 T/CUMM (130-400); Red Blood Count 2.76 MC/CUMM (3.8-5.5); Red Cell Distribution Width 19.7 % (9.3-17.3); White Blood Count 11.5 T/CUMM (4-12)
[2019-03-06 14:34] LABS: Lymphocytes 5 % (20-55); Platelet Estimate Normal; Segmented Neutrophils 83 % (50-85); Total Cells Counted 100
[2019-03-06 14:35] LABS: Hypochromasia 1+; Microcytosis 1+
[2019-03-06 14:36] LABS: Anisocytosis 1+; Ovalocytes Few; Poikilocytosis 1+; Tear Drop Cells Few
[2019-03-06 14:41] LABS: Calcium 7.8 MG/DL (8.5-10.1); Osmolality,Calculated 286.1 MOS/KG (273-304)
[2019-03-06 14:51] LABS: Alanine Aminotransferase 47 U/L (16-61); Albumin 2.5 G/DL (3.4-5.0); Alkaline Phosphatase 357 U/L (45-117); Aspartate Amino Transferase 108 U/L (0-37); Bilirubin,Direct < 0.100 MG/DL (0.0-0.20); Bilirubin,Indirect 0.3 MG/DL (0.0-1.0); Bilirubin,Total < 0.39 MG/DL (0.2-1.0)
[2019-03-06] MEDS: fentaNYL 50 MCG/HR PATCH TRANSDERM SCH (15:07)
[2019-03-06] MEDS: SODIUM CHLORIDE 0.9% 1,000 ML IV SCH (15:07)
[2019-03-06] MEDS: oxyCODONE/ACETAMINOPHEN 5-325 MG TABLET PO PRN (16:50)
[2019-03-06 18:05] LABS: Apearance,Urine CLEAR (Clear); Bacteria,Urine Occasional /HPF (Few); Bilirubin,Urine Negative (Negative); Blood, Urine Small mg/dL (Negative); Glucose,Urine (UA) 50 mg/dL (Negative); Hyaline Casts,Urine 1 /LPF (0-3); Ketones,Urine Negative (Negative); Mucus,Urine Occasional /LPF (Occasional); Nitrite,Urine Negative (Negative); Protein,Urine 30 MG/DL; RBC,Urine 3 /HPF (0-4); Urine Color Yellow (Yellow); Urine Specific Gravity 1.015 (1.001-1.035); Urine Urobilinogen < 2.0 EU/DL (0.2-1.0); WBC,Urine 8 /HPF (0-6)
[2019-03-06] MEDS ORDERED: TAMSULOSIN 0.4 MG CAPSULE PO SCH (21:00)
[2019-03-06] MEDS: CALCIUM (CARBONATE)/VITAMIN D 600 MG-400 UNIT TABLET PO SCH (21:47)
[2019-03-06] MEDS: clonazePAM 0.5 MG TABLET PO SCH (21:47)
[2019-03-06] MEDS: POLYETHYLENE GLYCOL POWDER 17 GM PACK PO SCH (21:47)
[2019-03-06] MEDS: SIMVASTATIN 10 MG TABLET PO SCH (21:47)
[2019-03-07] MEDS: SODIUM CHLORIDE 0.9% 1,000 ML IV SCH ×3 (02:12→23:51)
[2019-03-07 05:06] LABS: Eosinophils # 0.1 10*3/uL (0.0-0.87); Hematocrit 20.9 VOL% (42.0-52.0); Immature Granulocytes % 0.8 %; Immature Granulocytes Absolute 0.06 #; Lymphocytes # 0.4 10*3/uL (1.4-4.0); Lymphocytes % 4.7 % (21.2-54.2); Mean Corpuscular HGB Conc 28.7 GM/DL (32-36); Mean Corpuscular Volume 90.9 FL (87-102); Mean Platelet Volume 10.1 FL (9.6-12.0); Monocytes % 10.8 % (1.7-12.7); Neutrophils % 82.7 % (38.7-73.9); Platelet Count 304 T/CUMM (130-400); Red Cell Distribution Width 19.9 % (9.3-17.3); White Blood Count 7.7 T/CUMM (4-12)
[2019-03-07 05:19] LABS: Calcium 7.3 MG/DL (8.5-10.1)
[2019-03-07 05:33] LABS: Band Neutrophils 3 % (0-10); Eosinophils 1 % (0-10); Hypochromasia 1+; Lymphocytes 4 % (20-55); Microcytosis 1+; Nucleated Red Blood Cells 1 (0-5); Ovalocytes Few; Segmented Neutrophils 85 % (50-85); Total Cells Counted 100
[2019-03-07 05:34] LABS: Tear Drop Cells Slight
[2019-03-07] MEDS ORDERED: SODIUM CHLORIDE 0.9% 1,000 ML IV PRN (06:34)
[2019-03-07] MEDS: POLYETHYLENE GLYCOL POWDER 17 GM PACK PO SCH ×2 (08:35→20:32)
[2019-03-07] MEDS: PANTOPRAZOLE 40 MG TABLET PO SCH (08:35)
[2019-03-07] MEDS: CALCIUM (CARBONATE)/VITAMIN D 600 MG-400 UNIT TABLET PO SCH ×2 (08:35→20:31)
[2019-03-07] MEDS: ENOXAPARIN 30 MG/0.3 ML SYRINGE SUBCUT SCH (08:35)
[2019-03-07] MEDS: TAMSULOSIN 0.4 MG CAPSULE PO SCH ×2 (08:52→20:31)
[2019-03-07] MEDS: ACETAMINOPHEN 325 MG TABLET PO PRN ×2 (08:52→13:57)
[2019-03-07] MEDS ORDERED: diphenhydrAMINE 50 MG/1 ML VIAL IV ONE (09:22)
[2019-03-07] MEDS ORDERED: diphenhydrAMINE 50 MG/1 ML VIAL ONE (09:23)
[2019-03-07] MEDS ORDERED: DEXAMETHASONE INJ 20 MG in SODIUM CHLORIDE 0.9% 50 ML IV ONE (10:50)
[2019-03-07] MEDS: oxyCODONE/ACETAMINOPHEN 5-325 MG TABLET PO PRN (19:22)
[2019-03-07] MEDS: SIMVASTATIN 10 MG TABLET PO SCH (20:31)
[2019-03-07] MEDS: TEMAZEPAM 7.5 MG CAPSULE PO PRN (20:31)
[2019-03-07] MEDS: clonazePAM 0.5 MG TABLET PO SCH (20:31)
[2019-03-07] MEDS ORDERED: HYDROmorphone 2 MG/1 ML VIAL IV ONE (23:27)
[2019-03-08] MEDS: ONDANSETRON 4 MG/2 ML VIAL IV PRN ×2 (03:09→12:12)
[2019-03-08] MEDS ORDERED: clonazePAM 0.5 MG TABLET PO ONE (04:20)
[2019-03-08 05:00] LABS: Hematocrit 27.3 VOL% (42.0-52.0); Hemoglobin 8.3 GM/DL (14.0-18.0); Mean Corpuscular Volume 88.6 FL (87-102); Red Blood Count 3.08 MC/CUMM (3.8-5.5)
[2019-03-08] MEDS: oxyCODONE/ACETAMINOPHEN 5-325 MG TABLET PO PRN ×3 (05:00→19:15)
[2019-03-08 05:01] LABS: Basophils % 0.1 % (0.0-0.8); Eosinophils # 0.1 10*3/uL (0.0-0.87); Immature Granulocytes Absolute 0.14 #; Lymphocytes # 0.6 10*3/uL (1.4-4.0); Lymphocytes % 8.5 % (21.2-54.2); Mean Corpuscular HGB Conc 30.4 GM/DL (32-36); Mean Platelet Volume 10.1 FL (9.6-12.0); Monocytes % 13.5 % (1.7-12.7); Neutrophils % 73.9 % (38.7-73.9); Platelet Count 318 T/CUMM (130-400); Red Cell Distribution Width 18.5 % (9.3-17.3)
[2019-03-08 05:16] LABS: Osmolality,Calculated 302.1 MOS/KG (273-304)
[2019-03-08] MEDS: POLYETHYLENE GLYCOL POWDER 17 GM PACK PO SCH ×2 (08:47→20:28)
[2019-03-08] MEDS: MAGNESIUM HYDROXIDE SUSP 30 ML UDCUP PO SCH (08:47)
[2019-03-08] MEDS: TAMSULOSIN 0.4 MG CAPSULE PO SCH ×2 (08:48→20:28)
[2019-03-08] MEDS: CALCIUM (CARBONATE)/VITAMIN D 600 MG-400 UNIT TABLET PO SCH ×2 (08:48→20:27)
[2019-03-08] MEDS: PANTOPRAZOLE 40 MG TABLET PO SCH (08:48)
[2019-03-08] MEDS: ENOXAPARIN 30 MG/0.3 ML SYRINGE SUBCUT SCH (08:49)
[2019-03-08] MEDS: MORPHINE 4 MG/1 ML VIAL IV SCH ×2 (08:59→15:48)
[2019-03-08] MEDS: SIMETHICONE CHEW 125 MG TABLET PO SCH ×2 (09:00→20:28)
[2019-03-08] MEDS: SODIUM CHLORIDE 0.9% 1,000 ML IV SCH ×2 (10:15→20:29)
[2019-03-08] MEDS: POTASSIUM CHLORIDE 20 MEQ TABLET PO SCH ×2 (10:18→15:48)
[2019-03-08] MEDS ORDERED: POTASSIUM CHLORIDE 20 MEQ TABLET PO SCH (16:00)
[2019-03-08] MEDS: CYCLOBENZAPRINE 10 MG TABLET PO SCH (20:27)
[2019-03-08] MEDS: SIMVASTATIN 10 MG TABLET PO SCH (20:27)
[2019-03-08] MEDS: TEMAZEPAM 7.5 MG CAPSULE PO PRN (20:28)
[2019-03-08] MEDS: oxyCODONE IR 5 MG TABLET PO PRN (20:28)
[2019-03-08] MEDS: clonazePAM 0.5 MG TABLET PO SCH (20:28)
[2019-03-08] MEDS: MORPHINE 4 MG/1 ML VIAL IV PRN (23:33)
[2019-03-09] MEDS: oxyCODONE IR 5 MG TABLET PO PRN ×4 (03:20→23:28)
[2019-03-09] MEDS: SODIUM CHLORIDE 0.9% 1,000 ML IV SCH ×2 (05:46→20:15)
[2019-03-09 06:28] LABS: Calcium 7.7 MG/DL (8.5-10.1); Osmolality,Calculated 294.3 MOS/KG (273-304)
[2019-03-09] MEDS: MORPHINE 4 MG/1 ML VIAL IV PRN ×3 (07:32→16:57)
[2019-03-09] MEDS ORDERED: NEOMYCIN/POLYMYXIN IRRIG SOLN 1 ML AMP BLADDERIRR ONE (08:47)
[2019-03-09] MEDS ORDERED: LIDOCAINE 2% TOP JELLY 20 ML VIAL INTRAURETH ONE (08:50)
[2019-03-09] MEDS: TAMSULOSIN 0.4 MG CAPSULE PO SCH ×2 (09:46→20:14)
[2019-03-09] MEDS: POLYETHYLENE GLYCOL POWDER 17 GM PACK PO SCH ×2 (09:46→20:16)
[2019-03-09] MEDS: CALCIUM (CARBONATE)/VITAMIN D 600 MG-400 UNIT TABLET PO SCH ×2 (09:46→20:14)
[2019-03-09] MEDS: CYCLOBENZAPRINE 10 MG TABLET PO SCH ×3 (09:46→20:14)
[2019-03-09] MEDS: SIMETHICONE CHEW 125 MG TABLET PO SCH ×2 (09:46→20:13)
[2019-03-09] MEDS: PANTOPRAZOLE 40 MG TABLET PO SCH (09:46)
[2019-03-09] MEDS: fentaNYL 50 MCG/HR PATCH TRANSDERM SCH (14:22)
[2019-03-09] MEDS ORDERED: carisoprodoL 350 MG TABLET PO PRN (17:14)
[2019-03-09] MEDS ORDERED: MORPHINE 4 MG/1 ML VIAL IV PRN ×2 (17:15→17:24)
[2019-03-09] MEDS: ACETAMINOPHEN 325 MG TABLET PO PRN (17:17)
[2019-03-09] MEDS ORDERED: MORPHINE ER 30 MG TABLET PO SCH (17:30)
[2019-03-09] MEDS: SIMVASTATIN 10 MG TABLET PO SCH (20:14)
[2019-03-09] MEDS: TEMAZEPAM 7.5 MG CAPSULE PO PRN (20:15)
[2019-03-09] MEDS: METOPROLOL TARTRATE 25 MG TABLET PO SCH (20:15)
[2019-03-09] MEDS: ONDANSETRON 4 MG/2 ML VIAL IV PRN (20:26)
[2019-03-09] MEDS: METHADONE 10 MG TABLET PO SCH ×2 (23:29→23:39)
[2019-03-10] MEDS ORDERED: METHADONE 10 MG TABLET PO SCH
[2019-03-10] MEDS: oxyCODONE IR 5 MG TABLET PO PRN ×2 (01:30→08:39)
[2019-03-10] MEDS: SODIUM CHLORIDE 0.9% 1,000 ML IV SCH (03:29)
[2019-03-10 05:26] LABS: Basophils % 0.3 % (0.0-0.8); Eosinophils # 0.1 10*3/uL (0.0-0.87); Eosinophils % 1.6 % (0.00-10.9); Hematocrit 28.4 VOL% (42.0-52.0); Hemoglobin 8.8 GM/DL (14.0-18.0); Immature Granulocytes % 3.2 %; Immature Granulocytes Absolute 0.23 #; Lymphocytes # 0.5 10*3/uL (1.4-4.0); Lymphocytes % 6.6 % (21.2-54.2); Mean Corpuscular Volume 87.1 FL (87-102); Mean Platelet Volume 9.4 FL (9.6-12.0); Monocytes % 14.1 % (1.7-12.7); Neutrophils % 74.2 % (38.7-73.9); Platelet Count 305 T/CUMM (130-400); Red Blood Count 3.26 MC/CUMM (3.8-5.5); Red Cell Distribution Width 17.7 % (9.3-17.3); White Blood Count 7.3 T/CUMM (4-12)
[2019-03-10 05:50] LABS: Calcium 7.3 MG/DL (8.5-10.1); Osmolality,Calculated 290.4 MOS/KG (273-304)
[2019-03-10] MEDS: METHADONE 10 MG TABLET PO SCH ×2 (06:16→12:26)
[2019-03-10] MEDS ORDERED: LINACLOTIDE 145 MCG CAPSULE PO SCH (07:30)
[2019-03-10] MEDS: PANTOPRAZOLE 40 MG TABLET PO SCH (08:39)
[2019-03-10] MEDS: TAMSULOSIN 0.4 MG CAPSULE PO SCH (08:39)
[2019-03-10] MEDS: METOPROLOL TARTRATE 25 MG TABLET PO SCH (08:39)
[2019-03-10] MEDS: CALCIUM (CARBONATE)/VITAMIN D 600 MG-400 UNIT TABLET PO SCH (08:39)
[2019-03-10] MEDS: CYCLOBENZAPRINE 10 MG TABLET PO SCH ×2 (08:39→14:46)
[2019-03-10] MEDS: MAGNESIUM HYDROXIDE SUSP 30 ML UDCUP PO SCH (08:39)
[2019-03-10] MEDS: POLYETHYLENE GLYCOL POWDER 17 GM PACK PO SCH (08:41)
[2019-03-10] MEDS: SIMETHICONE CHEW 125 MG TABLET PO SCH (09:25)
[2019-03-10] MEDS ORDERED: POTASSIUM CHLORIDE 20 MEQ TABLET PO ONE ×2 (10:16→12:21)
[2019-03-10] MEDS ORDERED: MAGNESIUM SULF RIDER 2 GM in PREMIX 1 EACH IV ONE (10:20)
[2019-03-10 12:02] VITALS: BP 128/87
== END 2019-03-10 15:48 | disposition home health service (06) | DRG 683 ==
LOC: N.4E 12:43 → SUATTDRO 12:43
PROVIDERS: ADMIT Internal Medicine; ATTEND Internal Medicine

== ENCOUNTER 2019-03-27 09:06 | Inpatient (IN) ==
[2019-03-27] MEDS ORDERED: MAGNESIUM SULF RIDER 2 GM in PREMIX 1 EACH IV STA (09:37)
[2019-03-27] MEDS ORDERED: DILTIAZEM 50 MG/10 ML VIAL IV STA ×2 (09:37→10:20)
[2019-03-27] MEDS ORDERED: SODIUM CHLORIDE 0.9% 500 ML IV STA (09:40)
[2019-03-27] MEDS: dilTIAZem Drip 125 MG/125 ML PREMIX IV SCH ×2 (10:00→14:30)
[2019-03-27 10:10] LABS: Basophils % 0.3 % (0.0-0.8); Eosinophils % 0.2 % (0.00-10.9); Hematocrit 33.7 VOL% (42.0-52.0); Immature Granulocytes % 0.8 %; Immature Granulocytes Absolute 0.05 #; Lymphocytes # 0.4 10*3/uL (1.4-4.0); Lymphocytes % 5.7 % (21.2-54.2); Mean Corpuscular HGB Conc 29.7 GM/DL (32-36); Mean Corpuscular Volume 89.9 FL (87-102); Mean Platelet Volume 9.6 FL (9.6-12.0); Monocytes % 17.3 % (1.7-12.7); Neutrophils % 75.7 % (38.7-73.9); Platelet Count 378 T/CUMM (130-400); Red Blood Count 3.75 MC/CUMM (3.8-5.5); Red Cell Distribution Width 18.3 % (9.3-17.3); White Blood Count 6.6 T/CUMM (4-12)
[2019-03-27 10:30] LABS: Band Neutrophils 5 % (0-10); Hypochromasia Slight; Lymphocytes 7 % (20-55); Ovalocytes Slight; Platelet Estimate Adequate; Segmented Neutrophils 71 % (50-85); Total Cells Counted 100
[2019-03-27 10:31] LABS: INR 1.1; PT Patient Result 11.8 SECS (9.6-12.2); Partial Thromboplastin Time 38.4 SECS (20.8-36.0)
[2019-03-27 10:34] LABS: Apearance,Urine CLEAR (Clear); Bacteria,Urine Occasional /HPF (Few); Bilirubin,Urine Negative (Negative); Blood, Urine Negative (Negative); Glucose,Urine (UA) Negative (Negative); Ketones,Urine Negative (Negative); Nitrite,Urine Negative (Negative); Protein,Urine Negative; RBC,Urine 5 /HPF (0-4); Urine Color Yellow (Yellow); Urine Specific Gravity 1.015 (1.001-1.035); Urine Urobilinogen < 2.0 EU/DL (0.2-1.0); WBC,Urine 1 /HPF (0-6)
[2019-03-27 10:38] LABS: Albumin 3.2 G/DL (3.4-5.0); Bilirubin,Total 0.6 MG/DL (0.2-1.0); Calcium 7.9 MG/DL (8.5-10.1); Osmolality,Calculated 258.2 MOS/KG (273-304); Thyroid Stimulating Hormone 0.574 uIU/ml (0.358-3.74); Total Protein 7.2 G/DL (6.4-8.3)
[2019-03-27 10:39] LABS: Barbiturates Screen,Urine Negative (Negative); Benzodiazepines Screen,Urine Positive (Negative); Cannabinoid Screen,Urine Negative (Negative); Opiate Screen,Urine Positive (Negative); Phencyclidine Screen,Urine Negative (Negative)
[2019-03-27] MEDS ORDERED: INSULIN REGULAR 100 UNIT/ML IV STA (10:43)
[2019-03-27] MEDS ORDERED: DEXTROSE 50% 25 GM/50 ML VIAL IV STA (10:43)
[2019-03-27] MEDS ORDERED: SODIUM BICARBONATE 50 MEQ/50 ML VIAL IV STA (10:44)
[2019-03-27] MEDS ORDERED: CALCIUM CHLORIDE 1,000 MG/10 ML SYRINGE IV STA (10:44)
[2019-03-27] MEDS ORDERED: DEXTROSE 50% 25 GM/50 ML SYRINGE IV ONE (11:03)
[2019-03-27] MEDS ORDERED: ALBUTEROL 2.5 MG/3 ML NEB RESP TX PRN (11:21)
[2019-03-27] MEDS ORDERED: ACETAMINOPHEN 325 MG TABLET PO PRN (11:21)
[2019-03-27] MEDS ORDERED: ONDANSETRON 4 MG/2 ML VIAL IV PRN (11:21)
[2019-03-27] MEDS ORDERED: ENOXAPARIN 40 MG/0.4 ML SYRINGE SUBCUT SCH (11:30)
[2019-03-27] MEDS: SODIUM CHLORIDE 0.9% 1,000 ML IV SCH ×2 (11:35→19:14)
[2019-03-27] MEDS: PANTOPRAZOLE 40 MG VIAL IV SCH (11:50)
[2019-03-27] MEDS: PIPERACILLIN/TAZOBACTAM 3,375 MG in SODIUM CHLORIDE 0.9% 100 ML IV SCH ×2 (11:52→20:26)
[2019-03-27 14:01] LABS: Calcium 8.6 MG/DL (8.5-10.1); Osmolality,Calculated 267.5 MOS/KG (273-304)
[2019-03-27] MEDS ORDERED: DIAZEPAM 5 MG TABLET PO ONE (14:07)
[2019-03-27] MEDS ORDERED: SODIUM CHLORIDE 0.9% 500 ML IV ONE (18:37)
[2019-03-28 01:17] LABS: Apearance,Urine CLEAR (Clear); Bilirubin,Urine Negative (Negative); Blood, Urine Small mg/dL (Negative); Glucose,Urine (UA) Negative (Negative); Ketones,Urine Negative (Negative); Mucus,Urine Occasional /LPF (Occasional); Nitrite,Urine Negative (Negative); Protein,Urine Negative; RBC,Urine 7 /HPF (0-4); Urine Color Yellow (Yellow); Urine Specific Gravity 1.016 (1.001-1.035); Urine Urobilinogen < 2.0 EU/DL (0.2-1.0); WBC,Urine 6 /HPF (0-6)
[2019-03-28] MEDS ORDERED: SODIUM CHLORIDE 0.9% 500 ML IV ONE (01:58)
[2019-03-28] MEDS: SODIUM CHLORIDE 0.9% 1,000 ML IV SCH ×3 (02:33→20:05)
[2019-03-28] MEDS: PIPERACILLIN/TAZOBACTAM 3,375 MG in SODIUM CHLORIDE 0.9% 100 ML IV SCH ×3 (02:39→20:04)
[2019-03-28 06:03] LABS: Basophils % 0.2 % (0.0-0.8); Eosinophils # 0.1 10*3/uL (0.0-0.87); Eosinophils % 1.8 % (0.00-10.9); Hematocrit 23.4 VOL% (42.0-52.0); Hemoglobin 6.9 GM/DL (14.0-18.0); Immature Granulocytes % 1.4 %; Immature Granulocytes Absolute 0.06 #; Lymphocytes # 0.4 10*3/uL (1.4-4.0); Lymphocytes % 9.5 % (21.2-54.2); Mean Corpuscular HGB Conc 29.5 GM/DL (32-36); Mean Corpuscular Volume 89.7 FL (87-102); Mean Platelet Volume 10.3 FL (9.6-12.0); Monocytes % 18.1 % (1.7-12.7); Platelet Count 262 T/CUMM (130-400); Red Blood Count 2.61 MC/CUMM (3.8-5.5); Red Cell Distribution Width 18.5 % (9.3-17.3); White Blood Count 4.4 T/CUMM (4-12)
[2019-03-28 06:27] LABS: Albumin 2.3 G/DL (3.4-5.0); Bilirubin,Total 0.6 MG/DL (0.2-1.0); Calcium 7.5 MG/DL (8.5-10.1); Osmolality,Calculated 272.1 MOS/KG (273-304); Total Protein 5.8 G/DL (6.4-8.3)
[2019-03-28 06:29] LABS: Band Neutrophils 4 % (0-10); Hypochromasia 1+; Lymphocytes 7 % (20-55); Microcytosis 1+; Myelocytes 1 %; Ovalocytes Slight; Segmented Neutrophils 75 % (50-85); Tear Drop Cells Slight; Total Cells Counted 100
[2019-03-28 06:30] LABS: Giant Platelets Few
[2019-03-28] MEDS ORDERED: SODIUM CHLORIDE 0.9% 1,000 ML IV PRN (08:11)
[2019-03-28] MEDS ORDERED: DOCUSATE SODIUM 100 MG CAPSULE PO PRN (10:32)
[2019-03-28] MEDS ORDERED: clonazePAM 0.5 MG TABLET PO PRN (10:32)
[2019-03-28] MEDS ORDERED: [UNRECOGNIZED DRUG - OTHER] PO PRN (10:32)
[2019-03-28] MEDS ORDERED: DEXTROMETHORPHAN PO PRN (10:32)
[2019-03-28] MEDS ORDERED: METHADONE 10 MG TABLET PO PRN (10:32)
[2019-03-28] MEDS ORDERED: PHENYLEPHRINE PO PRN (10:32)
[2019-03-28] MEDS: MORPHINE 4 MG/1 ML VIAL IV PRN ×2 (10:42→19:45)
[2019-03-28] MEDS ORDERED: fentaNYL 50 MCG/HR PATCH TRANSDERM SCH (11:00)
[2019-03-28] MEDS: dilTIAZem Drip 125 MG/125 ML PREMIX IV SCH (11:38)
[2019-03-28] MEDS: PANTOPRAZOLE 40 MG VIAL IV SCH (12:09)
[2019-03-28] MEDS: METOPROLOL TARTRATE 25 MG TABLET PO SCH ×2 (12:10→20:06)
[2019-03-28] MEDS: TAMSULOSIN 0.4 MG CAPSULE PO SCH ×2 (12:10→20:06)
[2019-03-28] MEDS: oxyCODONE ER 20 MG TABLET PO SCH (12:10)
[2019-03-28] MEDS: LINACLOTIDE 145 MCG CAPSULE PO SCH (12:11)
[2019-03-28] MEDS: DEXAMETHASONE 4 MG/1 ML VIAL IV SCH ×2 (12:22→20:02)
[2019-03-28] MEDS ORDERED: DEXAMETHASONE INJ 4 MG in SODIUM CHLORIDE 0.9% 50 ML IV SCH (12:30)
[2019-03-28] MEDS: oxyCODONE IR 5 MG TABLET PO PRN (22:14)
[2019-03-29] MEDS: oxyCODONE ER 20 MG TABLET PO SCH ×2 (00:15→12:39)
[2019-03-29] MEDS: PIPERACILLIN/TAZOBACTAM 3,375 MG in SODIUM CHLORIDE 0.9% 100 ML IV SCH ×2 (04:15→12:47)
[2019-03-29] MEDS: DEXAMETHASONE 4 MG/1 ML VIAL IV SCH ×2 (04:42→12:49)
[2019-03-29] MEDS: MORPHINE 4 MG/1 ML VIAL IV PRN (05:44)
[2019-03-29] MEDS: oxyCODONE IR 5 MG TABLET PO PRN (07:36)
[2019-03-29] MEDS: LINACLOTIDE 145 MCG CAPSULE PO SCH (07:37)
[2019-03-29 07:43] LABS: Basophils % 0.3 % (0.0-0.8); Eosinophils % 0.2 % (0.00-10.9); Hematocrit 28.8 VOL% (42.0-52.0); Immature Granulocytes % 5.9 %; Immature Granulocytes Absolute 0.39 #; Lymphocytes # 0.5 10*3/uL (1.4-4.0); Lymphocytes % 7.2 % (21.2-54.2); Mean Corpuscular HGB Conc 29.9 GM/DL (32-36); Mean Corpuscular Volume 90.6 FL (87-102); Mean Platelet Volume 9.5 FL (9.6-12.0); Monocytes % 13.5 % (1.7-12.7); Neutrophils % 72.9 % (38.7-73.9); Platelet Count 313 T/CUMM (130-400); Red Cell Distribution Width 16.8 % (9.3-17.3)
[2019-03-29 07:49] LABS: Red Blood Count 3.18 MC/CUMM (3.8-5.5); White Blood Count 6.7 T/CUMM (4-12)
[2019-03-29 07:50] LABS: Hemoglobin 8.6 GM/DL (14.0-18.0)
[2019-03-29 07:58] LABS: Calcium 7.6 MG/DL (8.5-10.1); Osmolality,Calculated 273.8 MOS/KG (273-304)
[2019-03-29 08:03] LABS: Band Neutrophils 5 % (0-10); Hypochromasia 1+; Lymphocytes 7 % (20-55); Metamyelocytes 1 %; Microcytosis 1+; Myelocytes 1 %; Segmented Neutrophils 72 % (50-85); Total Cells Counted 100
[2019-03-29 08:04] LABS: Elliptocytes Few
[2019-03-29] MEDS ORDERED: VENLAFAXINE XR 75 MG CAPSULE PO SCH (09:00)
[2019-03-29] MEDS: TAMSULOSIN 0.4 MG CAPSULE PO SCH (09:04)
[2019-03-29] MEDS: METOPROLOL TARTRATE 25 MG TABLET PO SCH (09:04)
[2019-03-29] MEDS: PANTOPRAZOLE 40 MG VIAL IV SCH (12:36)
[2019-03-29 12:43] VITALS: BP 133/88
== END 2019-03-29 13:38 | disposition home health service (06) | DRG 308 ==
LOC: N.ED 09:06 → SUATTDRO 11:21 → N.EDINP 11:21 → N.ICU 12:53 → N.4E 03-28 15:52
PROVIDERS: ADMIT Internal Medicine; ATTEND Internal Medicine

== ENCOUNTER 2019-04-27 18:54 | Inpatient (IN) ==
[2019-04-27] MEDS ORDERED: ACETAMINOPHEN 500 MG TABLET ONE (19:24)
[2019-04-27] MEDS ORDERED: ACETAMINOPHEN 500 MG TABLET PO STA (19:29)
[2019-04-27] MEDS ORDERED: SODIUM CHLORIDE 0.9% 1,000 ML IV STA (19:40)
[2019-04-27] MEDS ORDERED: PIPERACILLIN/TAZOBACTAM 3,375 MG in SODIUM CHLORIDE 0.9% 100 ML IV STA (19:40)
[2019-04-27 20:43] LABS: Eosinophils % 1.4 % (0.00-10.9); Hemoglobin 8.7 GM/DL (14.0-18.0); Immature Granulocytes % 1.4 %; Immature Granulocytes Absolute 0.01 #; Lymphocytes # 0.2 10*3/uL (1.4-4.0); Lymphocytes % 30.6 % (21.2-54.2); Mean Corpuscular Volume 93.9 FL (87-102); Mean Platelet Volume 9.1 FL (9.6-12.0); Monocytes % 19.4 % (1.7-12.7); NRBC # 0.08 10*3/uL; Neutrophils % 47.2 % (38.7-73.9); Platelet Count 132 T/CUMM (130-400); Red Blood Count 3.09 MC/CUMM (3.8-5.5); Red Cell Distribution Width 22.2 % (9.3-17.3)
[2019-04-27 20:49] LABS: White Blood Count 0.7 T/CUMM (4-12)
[2019-04-27 20:56] LABS: PT Patient Result 10.4 SECS (9.6-12.2)
[2019-04-27 21:13] LABS: Albumin 2.7 G/DL (3.4-5.0); Bilirubin,Total 0.5 MG/DL (0.2-1.0); Calcium 7.7 MG/DL (8.5-10.1); Osmolality,Calculated 280.7 MOS/KG (273-304); Total Protein 6.1 G/DL (6.4-8.3); Troponin I < 0.015 NG/ML (0.00-0.045)
[2019-04-27 22:16] LABS: Band Neutrophils 1 % (0-10); Eosinophils 2 % (0-10); Lymphocytes 29 % (20-55); Nucleated Red Blood Cells 9 (0-5); Platelet Estimate Normal; Segmented Neutrophils 54 % (50-85); Total Cells Counted 100
[2019-04-27 22:18] LABS: Anisocytosis 2+; Microcytosis 1+; Polychromasia Few
[2019-04-27 22:19] LABS: Hypochromasia 1+; Ovalocytes Few; Tear Drop Cells Few
[2019-04-27] MEDS ORDERED: KETOROLAC 30 MG/1 ML VIAL ONE (22:26)
[2019-04-27] MEDS ORDERED: KETOROLAC 30 MG/1 ML VIAL IV STA (22:44)
[2019-04-28] MEDS ORDERED: DOCUSATE SODIUM 100 MG CAPSULE PO PRN (00:26)
[2019-04-28] MEDS ORDERED: ACETAMINOPHEN 325 MG TABLET PO PRN (00:26)
[2019-04-28] MEDS ORDERED: PROMETHAZINE 25 MG/1 ML VIAL IV PRN (00:26)
[2019-04-28] MEDS ORDERED: ALBUTEROL 2.5 MG/3 ML NEB RESP TX PRN (00:26)
[2019-04-28] MEDS ORDERED: PROMETHAZINE INJ 25 MG in SODIUM CHLORIDE 0.9% 50 ML IV PRN (00:36)
[2019-04-28] MEDS: SODIUM CHLORIDE 0.9% 1,000 ML IV SCH ×3 (01:27→13:12)
[2019-04-28] MEDS: ENOXAPARIN 40 MG/0.4 ML SYRINGE SUBCUT SCH (01:27)
[2019-04-28] MEDS ORDERED: ALUM/MAG/SIMETH/LIDO VISC 1:1 30 ML BOTTLE PO ONE (01:36)
[2019-04-28] MEDS ORDERED: METHADONE 10 MG TABLET PO PRN (01:52)
[2019-04-28] MEDS ORDERED: clonazePAM 0.5 MG TABLET PO PRN (01:52)
[2019-04-28] MEDS ORDERED: DEXTROMETHORPHAN PO PRN (01:52)
[2019-04-28] MEDS ORDERED: PHENYLEPHRINE PO PRN (01:52)
[2019-04-28] MEDS ORDERED: [UNRECOGNIZED DRUG - OTHER] PO PRN (01:52)
[2019-04-28] MEDS ORDERED: SODIUM CHLORIDE 0.9% 1,000 ML IV ONE (01:59)
[2019-04-28] MEDS ORDERED: fentaNYL 50 MCG/HR PATCH TRANSDERM SCH (02:00)
[2019-04-28] MEDS: TEMAZEPAM 7.5 MG CAPSULE PO PRN (02:23)
[2019-04-28] MEDS: TAMSULOSIN 0.4 MG CAPSULE PO SCH ×3 (02:23→17:30)
[2019-04-28] MEDS ORDERED: PIPERACILLIN/TAZOBACTAM 3,375 MG in SODIUM CHLORIDE 0.9% 100 ML IV SCH (04:00)
[2019-04-28 04:58] LABS: Apearance,Urine CLEAR (Clear); Bilirubin,Urine Negative (Negative); Blood, Urine Negative (Negative); Glucose,Urine (UA) Negative (Negative); Ketones,Urine Negative (Negative); Nitrite,Urine Negative (Negative); Protein,Urine Negative; RBC,Urine 2 /HPF (0-4); Urine Color Yellow (Yellow); Urine Specific Gravity 1.028 (1.001-1.035); Urine Urobilinogen < 2.0 EU/DL (0.2-1.0); WBC,Urine 1 /HPF (0-6)
[2019-04-28 05:42] LABS: Calcium 6.9 MG/DL (8.5-10.1); Osmolality,Calculated 282.4 MOS/KG (273-304)
[2019-04-28 05:44] LABS: Eosinophils % 3.5 % (0.00-10.9); Hemoglobin 7.5 GM/DL (14.0-18.0); Immature Granulocytes % 3.5 %; Immature Granulocytes Absolute 0.02 #; Lymphocytes # 0.2 10*3/uL (1.4-4.0); Lymphocytes % 31.6 % (21.2-54.2); Mean Corpuscular Volume 94.3 FL (87-102); Mean Platelet Volume 9.7 FL (9.6-12.0); Neutrophils % 47.4 % (38.7-73.9); Platelet Count 122 T/CUMM (130-400); Red Blood Count 2.65 MC/CUMM (3.8-5.5); Red Cell Distribution Width 22.5 % (9.3-17.3)
[2019-04-28 05:57] LABS: White Blood Count 0.6 T/CUMM (4-12)
[2019-04-28 06:39] LABS: Anisocytosis 2+; Band Neutrophils 8 % (0-10); Eosinophils 8 % (0-10); Lymphocytes 28 % (20-55); Nucleated Red Blood Cells 1 (0-5); Ovalocytes Few; Platelet Estimate Adequate; Poikilocytosis 1+; Polychromasia Slight; Segmented Neutrophils 48 % (50-85); Total Cells Counted 100
[2019-04-28] MEDS: HYDROmorphone 2 MG TABLET PO PRN ×2 (07:01→20:56)
[2019-04-28] MEDS: LINACLOTIDE 145 MCG CAPSULE PO SCH (08:12)
[2019-04-28] MEDS: CALCIUM (CARBONATE)/VITAMIN D 600 MG-400 UNIT TABLET PO SCH ×2 (08:13→17:30)
[2019-04-28] MEDS: METHYLPHENIDATE 5 MG TABLET PO SCH ×2 (08:13→17:43)
[2019-04-28] MEDS: DEXAMETHASONE 4 MG TABLET PO SCH ×3 (08:13→17:30)
[2019-04-28] MEDS: GABAPENTIN 400 MG CAPSULE PO SCH ×3 (08:13→20:47)
[2019-04-28] MEDS: KETOROLAC 10 MG TABLET PO SCH ×3 (08:13→17:30)
[2019-04-28] MEDS: PANTOPRAZOLE 40 MG TABLET PO SCH (08:14)
[2019-04-28] MEDS: VENLAFAXINE 75 MG TABLET PO SCH (08:14)
[2019-04-28] MEDS: NYSTATIN 500,000 UNIT/5 ML UDCUP SWISH/SWAL SCH ×4 (08:14→20:48)
[2019-04-28] MEDS: CHOLECALCIFEROL 1,000 UNIT TABLET PO SCH (08:14)
[2019-04-28] MEDS: FLUTICASONE 50 MCG NASAL SPRAY 16 GM BOTTLE BOTH NARES SCH (08:14)
[2019-04-28] MEDS ORDERED: NON-FORMULARY MEDICATION (Omeprazole 20 MG) PO SCH (09:00)
[2019-04-28] MEDS ORDERED: CALCIUM GLUCONATE 1,000 MG in SODIUM CHLORIDE 0.9% 100 ML IV ONE (09:30)
[2019-04-28] MEDS: MAGNESIUM HYDROXIDE SUSP 30 ML UDCUP PO SCH (09:51)
[2019-04-28] MEDS: BICALUTAMIDE 50 MG TABLET PO SCH (09:52)
[2019-04-28] MEDS ORDERED: VANCOMYCIN INJ 1,750 MG in SODIUM CHLORIDE 0.9% 500 ML IV ONE (11:00)
[2019-04-28] MEDS: FILGRASTIM-SNDZ 480 MCG/0.8 ML SYRINGE SUBCUT SCH (12:03)
[2019-04-28] MEDS: FLUCONAZOLE INJ 100 MG in IV BAG 1 EACH IV SCH (12:04)
[2019-04-28] MEDS: PIPERACILLIN/TAZOBACTAM 4,500 MG in SODIUM CHLORIDE 0.9% 100 ML IV SCH ×2 (13:27→20:48)
[2019-04-28] MEDS: SIMVASTATIN 10 MG TABLET PO SCH (20:47)
[2019-04-28] MEDS: VANCOMYCIN INJ 1,250 MG in SODIUM CHLORIDE 0.9% 250 ML IV SCH (23:35)
[2019-04-29] MEDS: ENOXAPARIN 40 MG/0.4 ML SYRINGE SUBCUT SCH ×2 (03:34→20:40)
[2019-04-29] MEDS: SODIUM CHLORIDE 0.9% 1,000 ML IV SCH ×2 (03:36→09:42)
[2019-04-29 04:50] LABS: Basophils % 0.6 % (0.0-0.8); Hemoglobin 7.4 GM/DL (14.0-18.0); Immature Granulocytes % 17.9 %; Immature Granulocytes Absolute 0.29 #; Lymphocytes # 0.2 10*3/uL (1.4-4.0); Lymphocytes % 11.1 % (21.2-54.2); Mean Corpuscular HGB Conc 30.8 GM/DL (32-36); Mean Corpuscular Volume 91.6 FL (87-102); Mean Platelet Volume 10.2 FL (9.6-12.0); Monocytes % 9.9 % (1.7-12.7); Neutrophils % 60.5 % (38.7-73.9); Platelet Count 129 T/CUMM (130-400); Red Blood Count 2.62 MC/CUMM (3.8-5.5); Red Cell Distribution Width 21.2 % (9.3-17.3); White Blood Count 1.6 T/CUMM (4-12)
[2019-04-29 05:12] LABS: Calcium 7.4 MG/DL (8.5-10.1)
[2019-04-29 05:58] LABS: Band Neutrophils 28 % (0-10); Lymphocytes 6 % (20-55); Metamyelocytes 1 %; Segmented Neutrophils 51 % (50-85); Total Cells Counted 100
[2019-04-29 05:59] LABS: Anisocytosis 1+; Hypochromasia 1+; Ovalocytes 1+; Platelet Estimate Adequate; Tear Drop Cells Few
[2019-04-29] MEDS: PIPERACILLIN/TAZOBACTAM 4,500 MG in SODIUM CHLORIDE 0.9% 100 ML IV SCH ×3 (06:10→20:40)
[2019-04-29] MEDS: TAMSULOSIN 0.4 MG CAPSULE PO SCH ×2 (09:40→17:56)
[2019-04-29] MEDS: CALCIUM (CARBONATE)/VITAMIN D 600 MG-400 UNIT TABLET PO SCH ×2 (09:40→17:56)
[2019-04-29] MEDS: BICALUTAMIDE 50 MG TABLET PO SCH (09:40)
[2019-04-29] MEDS: CHOLECALCIFEROL 1,000 UNIT TABLET PO SCH (09:40)
[2019-04-29] MEDS: GABAPENTIN 400 MG CAPSULE PO SCH ×3 (09:40→21:00)
[2019-04-29] MEDS: KETOROLAC 10 MG TABLET PO SCH ×3 (09:41→17:56)
[2019-04-29] MEDS: PANTOPRAZOLE 40 MG TABLET PO SCH (09:41)
[2019-04-29] MEDS: VENLAFAXINE 75 MG TABLET PO SCH (09:41)
[2019-04-29] MEDS: NYSTATIN 500,000 UNIT/5 ML UDCUP SWISH/SWAL SCH ×4 (09:41→20:39)
[2019-04-29] MEDS: DEXAMETHASONE 4 MG TABLET PO SCH ×3 (09:41→17:59)
[2019-04-29] MEDS: METHYLPHENIDATE 5 MG TABLET PO SCH ×2 (09:41→17:56)
[2019-04-29] MEDS: FLUTICASONE 50 MCG NASAL SPRAY 16 GM BOTTLE BOTH NARES SCH (09:41)
[2019-04-29] MEDS: FILGRASTIM-SNDZ 480 MCG/0.8 ML SYRINGE SUBCUT SCH (09:42)
[2019-04-29] MEDS: LINACLOTIDE 145 MCG CAPSULE PO SCH (09:42)
[2019-04-29] MEDS ORDERED: SODIUM CHLORIDE 0.9% 1,000 ML IV PRN (10:13)
[2019-04-29] MEDS ORDERED: ACETAMINOPHEN 500 MG TABLET PO ONE (12:45)
[2019-04-29] MEDS ORDERED: diphenhydrAMINE 50 MG/1 ML VIAL IV ONE (12:45)
[2019-04-29] MEDS: FLUCONAZOLE INJ 100 MG in IV BAG 1 EACH IV SCH (13:12)
[2019-04-29] MEDS: VANCOMYCIN INJ 1,250 MG in SODIUM CHLORIDE 0.9% 250 ML IV SCH (15:26)
[2019-04-29] MEDS: HYDROmorphone 2 MG TABLET PO PRN (20:39)
[2019-04-29] MEDS: TEMAZEPAM 7.5 MG CAPSULE PO PRN (20:39)
[2019-04-29] MEDS: SIMVASTATIN 10 MG TABLET PO SCH (21:00)
[2019-04-30] MEDS: SODIUM CHLORIDE 0.9% 1,000 ML IV SCH ×3 (00:44→17:08)
[2019-04-30] MEDS: HYDROmorphone 2 MG TABLET PO PRN ×4 (03:12→20:51)
[2019-04-30] MEDS: VANCOMYCIN INJ 1,250 MG in SODIUM CHLORIDE 0.9% 250 ML IV SCH (03:13)
[2019-04-30] MEDS: PIPERACILLIN/TAZOBACTAM 4,500 MG in SODIUM CHLORIDE 0.9% 100 ML IV SCH ×4 (05:26→20:50)
[2019-04-30 06:36] LABS: Basophils % 0.9 % (0.0-0.8); Hematocrit 29.7 VOL% (42.0-52.0); Hemoglobin 8.8 GM/DL (14.0-18.0); Immature Granulocytes % 8.4 %; Immature Granulocytes Absolute 0.29 #; Lymphocytes # 0.2 10*3/uL (1.4-4.0); Lymphocytes % 6.7 % (21.2-54.2); Mean Corpuscular HGB Conc 29.6 GM/DL (32-36); Mean Corpuscular Volume 93.1 FL (87-102); Mean Platelet Volume 10.3 FL (9.6-12.0); Monocytes % 7.2 % (1.7-12.7); NRBC # 0.08 10*3/uL; Neutrophils % 76.8 % (38.7-73.9); Platelet Count 122 T/CUMM (130-400); Red Blood Count 3.19 MC/CUMM (3.8-5.5); Red Cell Distribution Width 19.3 % (9.3-17.3); White Blood Count 3.5 T/CUMM (4-12)
[2019-04-30] MEDS: MAGNESIUM HYDROXIDE SUSP 30 ML UDCUP PO SCH (09:04)
[2019-04-30] MEDS: LINACLOTIDE 145 MCG CAPSULE PO SCH (09:05)
[2019-04-30] MEDS: BICALUTAMIDE 50 MG TABLET PO SCH (09:21)
[2019-04-30] MEDS: METHYLPHENIDATE 5 MG TABLET PO SCH ×2 (09:21→17:01)
[2019-04-30] MEDS: CHOLECALCIFEROL 1,000 UNIT TABLET PO SCH (09:22)
[2019-04-30] MEDS: PANTOPRAZOLE 40 MG TABLET PO SCH (09:22)
[2019-04-30] MEDS: KETOROLAC 10 MG TABLET PO SCH (09:22)
[2019-04-30] MEDS: DEXAMETHASONE 4 MG TABLET PO SCH ×3 (09:22→17:00)
[2019-04-30] MEDS: CALCIUM (CARBONATE)/VITAMIN D 600 MG-400 UNIT TABLET PO SCH ×2 (09:22→17:00)
[2019-04-30] MEDS: VENLAFAXINE 75 MG TABLET PO SCH (09:22)
[2019-04-30] MEDS: GABAPENTIN 400 MG CAPSULE PO SCH ×3 (09:23→20:51)
[2019-04-30] MEDS: NYSTATIN 500,000 UNIT/5 ML UDCUP SWISH/SWAL SCH ×5 (09:23→20:51)
[2019-04-30] MEDS: FILGRASTIM-SNDZ 480 MCG/0.8 ML SYRINGE SUBCUT SCH (09:23)
[2019-04-30] MEDS: TAMSULOSIN 0.4 MG CAPSULE PO SCH ×2 (09:42→17:01)
[2019-04-30] MEDS: FLUTICASONE 50 MCG NASAL SPRAY 16 GM BOTTLE BOTH NARES SCH (09:42)
[2019-04-30 10:13] LABS: Band Neutrophils 12 % (0-10); Hypochromasia 1+; Lymphocytes 8 % (20-55); Metamyelocytes 4 %; Microcytosis Slight; Myelocytes 1 %; Nucleated Red Blood Cells 5 (0-5); Polychromasia Slight; Segmented Neutrophils 59 % (50-85); Total Cells Counted 100
[2019-04-30 10:14] LABS: Platelet Estimate Adequate
[2019-04-30] MEDS: FLUCONAZOLE INJ 100 MG in IV BAG 1 EACH IV SCH (11:48)
[2019-04-30] MEDS: oxyCODONE/ACETAMINOPHEN 5-325 MG TABLET PO PRN ×2 (12:34→18:37)
[2019-04-30] MEDS: ENOXAPARIN 40 MG/0.4 ML SYRINGE SUBCUT SCH (20:50)
[2019-04-30] MEDS: TEMAZEPAM 7.5 MG CAPSULE PO PRN (20:51)
[2019-04-30] MEDS: SIMVASTATIN 10 MG TABLET PO SCH (20:51)
[2019-05-01] MEDS: oxyCODONE/ACETAMINOPHEN 5-325 MG TABLET PO PRN ×3 (00:40→11:53)
[2019-05-01] MEDS: HYDROmorphone 2 MG TABLET PO PRN ×2 (03:25→09:40)
[2019-05-01] MEDS: SODIUM CHLORIDE 0.9% 1,000 ML IV SCH (04:00)
[2019-05-01 04:24] LABS: Basophils # 0.1 10*3/uL (0.0-0.2); Basophils % 0.6 % (0.0-0.8); Hematocrit 30.1 VOL% (42.0-52.0); Hemoglobin 9.2 GM/DL (14.0-18.0); Immature Granulocytes % 14.1 %; Immature Granulocytes Absolute 1.13 #; Lymphocytes # 0.5 10*3/uL (1.4-4.0); Lymphocytes % 5.7 % (21.2-54.2); Mean Corpuscular HGB Conc 30.6 GM/DL (32-36); Mean Corpuscular Volume 92.6 FL (87-102); Monocytes % 11.4 % (1.7-12.7); NRBC # 0.22 10*3/uL; Neutrophils % 68.2 % (38.7-73.9); Platelet Count 125 T/CUMM (130-400); Red Blood Count 3.25 MC/CUMM (3.8-5.5); Red Cell Distribution Width 19.3 % (9.3-17.3)
[2019-05-01 04:40] LABS: Osmolality,Calculated 285.5 MOS/KG (273-304)
[2019-05-01 04:45] LABS: Band Neutrophils 2 % (0-10); Eosinophils 1 % (0-10); Lymphocytes 6 % (20-55); Myelocytes 1 %; Nucleated Red Blood Cells 1 (0-5); Segmented Neutrophils 75 % (50-85); Total Cells Counted 100
[2019-05-01 04:46] LABS: Hypochromasia 1+; Ovalocytes Slight; Platelet Estimate Adequate
[2019-05-01 04:47] LABS: Microcytosis Slight
[2019-05-01] MEDS: PIPERACILLIN/TAZOBACTAM 4,500 MG in SODIUM CHLORIDE 0.9% 100 ML IV SCH (05:48)
[2019-05-01] MEDS ORDERED: fentaNYL 50 MCG/HR PATCH TRANSDERM SCH (09:00)
[2019-05-01] MEDS: PANTOPRAZOLE 40 MG TABLET PO SCH (09:36)
[2019-05-01] MEDS: CALCIUM (CARBONATE)/VITAMIN D 600 MG-400 UNIT TABLET PO SCH (09:36)
[2019-05-01] MEDS: NYSTATIN 500,000 UNIT/5 ML UDCUP SWISH/SWAL SCH (09:37)
[2019-05-01] MEDS: BICALUTAMIDE 50 MG TABLET PO SCH (09:37)
[2019-05-01] MEDS: GABAPENTIN 400 MG CAPSULE PO SCH (09:38)
[2019-05-01] MEDS: METHYLPHENIDATE 5 MG TABLET PO SCH (09:39)
[2019-05-01] MEDS: CHOLECALCIFEROL 1,000 UNIT TABLET PO SCH (09:39)
[2019-05-01] MEDS: DEXAMETHASONE 4 MG TABLET PO SCH ×2 (09:39→11:53)
[2019-05-01] MEDS: LINACLOTIDE 145 MCG CAPSULE PO SCH (09:39)
[2019-05-01] MEDS: VENLAFAXINE 75 MG TABLET PO SCH (09:39)
[2019-05-01] MEDS: TAMSULOSIN 0.4 MG CAPSULE PO SCH (09:39)
[2019-05-01] MEDS: FLUTICASONE 50 MCG NASAL SPRAY 16 GM BOTTLE BOTH NARES SCH (09:40)
[2019-05-01 11:57] VITALS: BP 123/86
[2019-05-01] MEDS ORDERED: HEPARIN LOCK FLUSH 500 UNIT/5 ML SYRINGE IV ONE (12:06)
[2019-05-01] MEDS: FLUCONAZOLE INJ 100 MG in IV BAG 1 EACH IV SCH (12:09)
== END 2019-05-01 12:39 | disposition home or self-care (01) | DRG 809 ==
LOC: N.ED 18:54 → SUATTDRO 23:35 → N.EDINP 23:35 → N.CC 04-28 00:12 → N.4E 04-28 13:17
PROVIDERS: ADMIT Internal Medicine; ATTEND Internal Medicine

== ENCOUNTER 2019-06-10 19:02 | Inpatient (IN) ==
[2019-06-10 19:42] LABS: Basophils # 0.1 10*3/uL (0.0-0.2); Basophils % 0.7 % (0.0-0.8); Eosinophils % 0.2 % (0.00-10.9); Hematocrit 31.8 VOL% (42.0-52.0); Hemoglobin 9.6 GM/DL (14.0-18.0); Immature Granulocytes % 13.8 %; Immature Granulocytes Absolute 2.58 #; Lymphocytes % 5.2 % (21.2-54.2); Mean Corpuscular HGB Conc 30.2 GM/DL (32-36); Mean Corpuscular Volume 94.4 FL (87-102); Mean Platelet Volume 8.7 FL (9.6-12.0); NRBC # 0.76 10*3/uL; Neutrophils % 67.1 % (38.7-73.9); Platelet Count 48 T/CUMM (130-400); Red Blood Count 3.37 MC/CUMM (3.8-5.5); Red Cell Distribution Width 19.2 % (9.3-17.3); White Blood Count 18.7 T/CUMM (4-12)
[2019-06-10] MEDS ORDERED: MECLIZINE 25 MG TABLET ONE (19:54)
[2019-06-10] MEDS ORDERED: SODIUM CHLORIDE 0.9% 1,000 ML IV STA (19:57)
[2019-06-10] MEDS ORDERED: ACETAMINOPHEN 500 MG TABLET PO STA (19:57)
[2019-06-10 20:03] LABS: Bilirubin,Total 0.8 MG/DL (0.2-1.0); Calcium 7.7 MG/DL (8.5-10.1); Osmolality,Calculated 283.1 MOS/KG (273-304)
[2019-06-10] MEDS ORDERED: MEROPENEM 2,000 MG in SODIUM CHLORIDE 0.9% 100 ML IV ONE (20:20)
[2019-06-10] MEDS ORDERED: AZITHROMYCIN INJ 500 MG in SODIUM CHLORIDE 0.9% 250 ML IV STA (20:20)
[2019-06-10] MEDS ORDERED: HYDROmorphone 2 MG/1 ML VIAL IV STA (20:28)
[2019-06-10] MEDS ORDERED: ONDANSETRON 4 MG/2 ML VIAL IV ONE (20:28)
[2019-06-10 20:58] LABS: Band Neutrophils 1 % (0-10); Eosinophils 1 % (0-10); Lymphocytes 7 % (20-55); Macrocytosis Slight; Metamyelocytes 3 %; Myelocytes 7 %; Nucleated Red Blood Cells 2 (0-5); Polychromasia 2+; Promyelocytes 3 %; Segmented Neutrophils 68 % (50-85); Total Cells Counted 100
[2019-06-10 20:59] LABS: Anisocytosis 2+; Tear Drop Cells Few
[2019-06-10 21:00] LABS: Platelet Estimate Adequate; Toxic Granulation 1+
[2019-06-10] MEDS ORDERED: ONDANSETRON 4 MG/2 ML VIAL IV PRN (22:36)
[2019-06-10] MEDS ORDERED: ACETAMINOPHEN 325 MG TABLET PO PRN (22:36)
[2019-06-10] MEDS ORDERED: DOCUSATE SODIUM 100 MG CAPSULE PO PRN (22:36)
[2019-06-10] MEDS ORDERED: clonazePAM 0.5 MG TABLET PO PRN (23:06)
[2019-06-10] MEDS ORDERED: METHADONE 10 MG TABLET PO PRN (23:12)
[2019-06-10] MEDS ORDERED: TEMAZEPAM 7.5 MG CAPSULE PO PRN (23:12)
[2019-06-11] MEDS: oxyCODONE/ACETAMINOPHEN 5-325 MG TABLET PO PRN (00:42)
[2019-06-11] MEDS: VANCOMYCIN INJ 1,000 MG in SODIUM CHLORIDE 0.9% 250 ML IV SCH ×3 (03:00→21:10)
[2019-06-11] MEDS: MEROPENEM 2,000 MG in SODIUM CHLORIDE 0.9% 100 ML IV SCH ×3 (06:12→22:15)
[2019-06-11 07:05] LABS: Basophils # 0.1 10*3/uL (0.0-0.2); Basophils % 0.7 % (0.0-0.8); Eosinophils % 0.2 % (0.00-10.9); Hematocrit 30.4 VOL% (42.0-52.0); Hemoglobin 8.9 GM/DL (14.0-18.0); Immature Granulocytes % 11.7 %; Lymphocytes % 6.2 % (21.2-54.2); Mean Corpuscular HGB Conc 29.3 GM/DL (32-36); Mean Platelet Volume 11.9 FL (9.6-12.0); Monocytes % 10.3 % (1.7-12.7); NRBC # 0.47 10*3/uL; Neutrophils % 70.9 % (38.7-73.9); Platelet Count 57 T/CUMM (130-400); Red Cell Distribution Width 19.1 % (9.3-17.3); White Blood Count 15.4 T/CUMM (4-12)
[2019-06-11 07:20] LABS: Albumin 2.7 G/DL (3.4-5.0); Calcium 7.2 MG/DL (8.5-10.1); Total Protein 6.1 G/DL (6.4-8.3)
[2019-06-11 07:34] LABS: Ferritin 5690.4 ng/ml (26-388)
[2019-06-11 08:11] LABS: Band Neutrophils 19 % (0-10); Lymphocytes 10 % (20-55); Metamyelocytes 5 %; Myelocytes 7 %; Nucleated Red Blood Cells 3 (0-5); Platelet Estimate Decreased; Promyelocytes 1 %; Segmented Neutrophils 49 % (50-85); Total Cells Counted 100
[2019-06-11 08:12] LABS: Anisocytosis 2+; Macrocytosis Slight; Poikilocytosis 1+; Polychromasia Slight
[2019-06-11] MEDS: BICALUTAMIDE 50 MG TABLET PO SCH (11:03)
[2019-06-11] MEDS: TAMSULOSIN 0.4 MG CAPSULE PO SCH ×2 (11:03→21:10)
[2019-06-11] MEDS: FLUCONAZOLE 100 MG TABLET PO SCH (11:03)
[2019-06-11] MEDS: PANTOPRAZOLE 40 MG TABLET PO SCH (11:03)
[2019-06-11] MEDS: GABAPENTIN 400 MG CAPSULE PO SCH ×3 (11:03→21:10)
[2019-06-11] MEDS: CHOLECALCIFEROL 1,000 UNIT TABLET PO SCH (11:03)
[2019-06-11] MEDS: CALCIUM (CARBONATE)/VITAMIN D 600 MG-400 UNIT TABLET PO SCH ×2 (11:03→21:10)
[2019-06-11] MEDS: DEXAMETHASONE 4 MG TABLET PO SCH ×3 (11:03→21:10)
[2019-06-11] MEDS: lisinopriL 20 MG TABLET PO SCH (11:03)
[2019-06-11] MEDS: VENLAFAXINE 75 MG TABLET PO SCH (11:03)
[2019-06-11] MEDS: POTASSIUM CHLORIDE 10 MEQ TABLET PO SCH (11:03)
[2019-06-11] MEDS: FLUTICASONE 50 MCG NASAL SPRAY 16 GM BOTTLE BOTH NARES SCH (11:03)
[2019-06-11] MEDS: fentaNYL 50 MCG/HR PATCH TRANSDERM SCH (12:36)
[2019-06-11] MEDS: METOPROLOL TARTRATE 25 MG TABLET PO SCH ×2 (12:38→21:10)
[2019-06-11] MEDS: SODIUM CHLORIDE 0.9% 1,000 ML IV SCH ×2 (12:47)
[2019-06-11] MEDS: HYDROmorphone 2 MG TABLET PO PRN (18:56)
[2019-06-11] MEDS: SIMVASTATIN 10 MG TABLET PO SCH (21:10)
[2019-06-11] MEDS: AZITHROMYCIN 250 MG TABLET PO SCH (21:10)
[2019-06-12] MEDS: SODIUM CHLORIDE 0.9% 1,000 ML IV SCH ×2 (03:44→21:47)
[2019-06-12 03:55] LABS: Basophils % 0.3 % (0.0-0.8); Eosinophils % 0.2 % (0.00-10.9); Hematocrit 23.1 VOL% (42.0-52.0); Immature Granulocytes % 10.1 %; Immature Granulocytes Absolute 1.38 #; Lymphocytes # 0.8 10*3/uL (1.4-4.0); Lymphocytes % 5.5 % (21.2-54.2); Mean Corpuscular HGB Conc 30.3 GM/DL (32-36); Mean Corpuscular Volume 95.1 FL (87-102); Mean Platelet Volume 11.7 FL (9.6-12.0); Monocytes % 7.9 % (1.7-12.7); Platelet Count 49 T/CUMM (130-400); Red Blood Count 2.43 MC/CUMM (3.8-5.5); Red Cell Distribution Width 18.7 % (9.3-17.3); White Blood Count 13.7 T/CUMM (4-12)
[2019-06-12 04:24] LABS: Albumin 2.3 G/DL (3.4-5.0); Bilirubin,Total 0.4 MG/DL (0.2-1.0); Calcium 6.7 MG/DL (8.5-10.1); Total Protein 5.4 G/DL (6.4-8.3)
[2019-06-12] MEDS: VANCOMYCIN INJ 1,000 MG in SODIUM CHLORIDE 0.9% 250 ML IV SCH ×2 (04:35→11:35)
[2019-06-12 04:51] LABS: Band Neutrophils 5 % (0-10); Hypochromasia 1+; Lymphocytes 5 % (20-55); Macrocytosis Slight; Myelocytes 1 %; Nucleated Red Blood Cells 2 (0-5); Ovalocytes Slight; Platelet Estimate Decreased; Segmented Neutrophils 78 % (50-85); Total Cells Counted 100
[2019-06-12 04:52] LABS: Polychromasia Slight
[2019-06-12] MEDS: MEROPENEM 2,000 MG in SODIUM CHLORIDE 0.9% 100 ML IV SCH (05:36)
[2019-06-12] MEDS: HYDROmorphone 2 MG TABLET PO PRN (09:15)
[2019-06-12] MEDS: CALCIUM (CARBONATE)/VITAMIN D 600 MG-400 UNIT TABLET PO SCH ×2 (09:31→20:20)
[2019-06-12] MEDS: DEXAMETHASONE 4 MG TABLET PO SCH ×3 (09:31→20:20)
[2019-06-12] MEDS: FLUCONAZOLE 100 MG TABLET PO SCH (09:31)
[2019-06-12] MEDS: BICALUTAMIDE 50 MG TABLET PO SCH (09:31)
[2019-06-12] MEDS: VENLAFAXINE 75 MG TABLET PO SCH (09:32)
[2019-06-12] MEDS: lisinopriL 20 MG TABLET PO SCH (09:32)
[2019-06-12] MEDS: PANTOPRAZOLE 40 MG TABLET PO SCH (09:32)
[2019-06-12] MEDS: GABAPENTIN 400 MG CAPSULE PO SCH ×3 (09:32→20:20)
[2019-06-12] MEDS: MAGNESIUM HYDROXIDE SUSP 30 ML UDCUP PO SCH (09:32)
[2019-06-12] MEDS: TAMSULOSIN 0.4 MG CAPSULE PO SCH ×2 (09:32→20:20)
[2019-06-12] MEDS: CHOLECALCIFEROL 1,000 UNIT TABLET PO SCH (09:32)
[2019-06-12] MEDS: METOPROLOL TARTRATE 25 MG TABLET PO SCH ×2 (09:32→20:20)
[2019-06-12] MEDS: FLUTICASONE 50 MCG NASAL SPRAY 16 GM BOTTLE BOTH NARES SCH (09:32)
[2019-06-12] MEDS: POTASSIUM CHLORIDE 10 MEQ TABLET PO SCH (09:32)
[2019-06-12] MEDS: AZITHROMYCIN 250 MG TABLET PO SCH (09:33)
[2019-06-12] MEDS: MEROPENEM 500 MG in SODIUM CHLORIDE 0.9% 100 ML IV SCH ×2 (15:46→20:20)
[2019-06-12 16:10] LABS: Apearance,Urine Slightly Hazy (Clear); Bacteria,Urine Occasional /HPF (Few); Bilirubin,Urine Negative (Negative); Blood, Urine Negative (Negative); Glucose,Urine (UA) 50 mg/dL (Negative); Ketones,Urine 20 mg/dL (Negative); Mucus,Urine Occasional /LPF (Occasional); Nitrite,Urine Negative (Negative); Protein,Urine 30 MG/DL; RBC,Urine 2 /HPF (0-4); Squamous Epithelial Cell,Urine Occasional /HPF (0-10); Urine Color Yellow (Yellow); WBC,Urine 7 /HPF (0-6)
[2019-06-12] MEDS: SIMVASTATIN 10 MG TABLET PO SCH (20:20)
[2019-06-12] MEDS: oxyCODONE/ACETAMINOPHEN 5-325 MG TABLET PO PRN (21:00)
[2019-06-13] MEDS: MEROPENEM 500 MG in SODIUM CHLORIDE 0.9% 100 ML IV SCH ×4 (04:00→20:40)
[2019-06-13] MEDS: oxyCODONE/ACETAMINOPHEN 5-325 MG TABLET PO PRN ×3 (08:30→20:40)
[2019-06-13] MEDS: CALCIUM (CARBONATE)/VITAMIN D 600 MG-400 UNIT TABLET PO SCH ×2 (09:16→20:40)
[2019-06-13] MEDS: VENLAFAXINE 75 MG TABLET PO SCH (09:17)
[2019-06-13] MEDS: FLUCONAZOLE 100 MG TABLET PO SCH (09:17)
[2019-06-13] MEDS: TAMSULOSIN 0.4 MG CAPSULE PO SCH ×2 (09:17→20:40)
[2019-06-13] MEDS: POTASSIUM CHLORIDE 10 MEQ TABLET PO SCH (09:17)
[2019-06-13] MEDS: FLUTICASONE 50 MCG NASAL SPRAY 16 GM BOTTLE BOTH NARES SCH (09:17)
[2019-06-13] MEDS: DEXAMETHASONE 4 MG TABLET PO SCH ×3 (09:17→20:40)
[2019-06-13] MEDS: METOPROLOL TARTRATE 25 MG TABLET PO SCH ×2 (09:17→20:40)
[2019-06-13] MEDS: BICALUTAMIDE 50 MG TABLET PO SCH (09:17)
[2019-06-13] MEDS: METHADONE 10 MG TABLET PO SCH (09:18)
[2019-06-13] MEDS: AZITHROMYCIN 250 MG TABLET PO SCH (09:19)
[2019-06-13] MEDS: PANTOPRAZOLE 40 MG TABLET PO SCH (09:19)
[2019-06-13] MEDS: lisinopriL 20 MG TABLET PO SCH (09:19)
[2019-06-13] MEDS: GABAPENTIN 400 MG CAPSULE PO SCH ×3 (09:19→20:40)
[2019-06-13] MEDS: CHOLECALCIFEROL 1,000 UNIT TABLET PO SCH (09:20)
[2019-06-13] MEDS: SODIUM CHLORIDE 0.9% 1,000 ML IV SCH (13:00)
[2019-06-13 15:18] LABS: Osmolality,Calculated 287.8 MOS/KG (273-304)
[2019-06-13 15:43] LABS: Basophils # 0.1 10*3/uL (0.0-0.2); Basophils % 0.4 % (0.0-0.8); Eosinophils # 0.1 10*3/uL (0.0-0.87); Eosinophils % 0.4 % (0.00-10.9); Hematocrit 25.6 VOL% (42.0-52.0); Hemoglobin 7.5 GM/DL (14.0-18.0); Immature Granulocytes % 17.1 %; Immature Granulocytes Absolute 2.57 #; Lymphocytes # 0.4 10*3/uL (1.4-4.0); Lymphocytes % 2.7 % (21.2-54.2); Mean Corpuscular HGB Conc 29.3 GM/DL (32-36); Mean Corpuscular Volume 96.2 FL (87-102); Mean Platelet Volume 10.6 FL (9.6-12.0); Monocytes % 7.6 % (1.7-12.7); NRBC # 0.26 10*3/uL; Neutrophils % 71.8 % (38.7-73.9); Platelet Count 63 T/CUMM (130-400); Red Blood Count 2.66 MC/CUMM (3.8-5.5); Red Cell Distribution Width 18.6 % (9.3-17.3)
[2019-06-13 16:31] LABS: Band Neutrophils 6 % (0-10); Elliptocytes 1+; Eosinophils 1 % (0-10); Lymphocytes 2 % (20-55); Microcytosis 1+; Nucleated Red Blood Cells 1 (0-5); Platelet Estimate Decreased; Polychromasia 2+; Segmented Neutrophils 84 % (50-85); Tear Drop Cells 1+; Total Cells Counted 100
[2019-06-13 16:32] LABS: Burr Cells Few; Smudge Cells Few
[2019-06-13] MEDS: SIMVASTATIN 10 MG TABLET PO SCH (20:40)
[2019-06-14] MEDS: MEROPENEM 500 MG in SODIUM CHLORIDE 0.9% 100 ML IV SCH ×2 (03:00→13:09)
[2019-06-14] MEDS: SODIUM CHLORIDE 0.9% 1,000 ML IV SCH (03:23)
[2019-06-14 05:16] LABS: Basophils # 0.1 10*3/uL (0.0-0.2); Basophils % 0.4 % (0.0-0.8); Eosinophils % 0.3 % (0.00-10.9); Immature Granulocytes Absolute 2.37 #; Lymphocytes # 0.6 10*3/uL (1.4-4.0); Lymphocytes % 3.9 % (21.2-54.2); Mean Corpuscular HGB Conc 29.6 GM/DL (32-36); Mean Corpuscular Volume 95.1 FL (87-102); NRBC # 0.25 10*3/uL; Neutrophils % 73.4 % (38.7-73.9); Platelet Count 71 T/CUMM (130-400); Red Blood Count 2.84 MC/CUMM (3.8-5.5); Red Cell Distribution Width 18.3 % (9.3-17.3); White Blood Count 14.9 T/CUMM (4-12)
[2019-06-14 05:29] LABS: Calcium 7.2 MG/DL (8.5-10.1); Osmolality,Calculated 291.6 MOS/KG (273-304)
[2019-06-14 06:12] LABS: Band Neutrophils 5 % (0-10); Eosinophils 2 % (0-10); Hypochromasia 1+; Lymphocytes 6 % (20-55); Nucleated Red Blood Cells 2 (0-5); Ovalocytes Slight; Platelet Estimate Decreased; Segmented Neutrophils 76 % (50-85); Total Cells Counted 100
[2019-06-14 06:13] LABS: Microcytosis Slight
[2019-06-14] MEDS: CALCIUM (CARBONATE)/VITAMIN D 600 MG-400 UNIT TABLET PO SCH (08:42)
[2019-06-14] MEDS: TAMSULOSIN 0.4 MG CAPSULE PO SCH (08:42)
[2019-06-14] MEDS: BICALUTAMIDE 50 MG TABLET PO SCH (08:42)
[2019-06-14] MEDS: CHOLECALCIFEROL 1,000 UNIT TABLET PO SCH (08:42)
[2019-06-14] MEDS: POTASSIUM CHLORIDE 10 MEQ TABLET PO SCH (08:42)
[2019-06-14] MEDS: fentaNYL 50 MCG/HR PATCH TRANSDERM SCH (08:42)
[2019-06-14] MEDS: METOPROLOL TARTRATE 25 MG TABLET PO SCH (08:43)
[2019-06-14] MEDS: lisinopriL 20 MG TABLET PO SCH (08:43)
[2019-06-14] MEDS: AZITHROMYCIN 250 MG TABLET PO SCH (08:43)
[2019-06-14] MEDS: FLUCONAZOLE 100 MG TABLET PO SCH (08:43)
[2019-06-14] MEDS: MAGNESIUM HYDROXIDE SUSP 30 ML UDCUP PO SCH (08:43)
[2019-06-14] MEDS: PANTOPRAZOLE 40 MG TABLET PO SCH (08:43)
[2019-06-14] MEDS: VENLAFAXINE 75 MG TABLET PO SCH (08:43)
[2019-06-14] MEDS: DEXAMETHASONE 4 MG TABLET PO SCH (08:44)
[2019-06-14] MEDS: FLUTICASONE 50 MCG NASAL SPRAY 16 GM BOTTLE BOTH NARES SCH (08:44)
[2019-06-14] MEDS: METHADONE 10 MG TABLET PO SCH (08:46)
[2019-06-14] MEDS: oxyCODONE/ACETAMINOPHEN 5-325 MG TABLET PO PRN (09:15)
[2019-06-14] MEDS: GABAPENTIN 400 MG CAPSULE PO SCH (09:15)
[2019-06-14 10:29] VITALS: BP 145/89
== END 2019-06-14 13:09 | disposition home health service (06) | DRG 194 ==
LOC: EDUNIT# → EDBD → N.ED 19:02 → N.EDINP 21:15 → SUATTDRO 21:15 → N.2W 21:54
PROVIDERS: ADMIT Internal Medicine; ATTEND Internal Medicine

== ENCOUNTER 2019-07-03 08:05 | Inpatient (IN) ==
[2019-07-03] MEDS ORDERED: SODIUM CHLORIDE 0.9% 1,000 ML IV STA (08:27)
[2019-07-03] MEDS ORDERED: PIPERACILLIN/TAZOBACTAM 3,375 MG in SODIUM CHLORIDE 0.9% 100 ML IV STA (08:27)
[2019-07-03] MEDS ORDERED: PIPERACILLIN/TAZOBACTAM 3,375 MG VIAL IV ONE (09:18)
[2019-07-03 09:19] LABS: Apearance,Urine CLEAR (Clear); Bacteria,Urine Occasional /HPF (Few); Bilirubin,Urine Negative (Negative); Blood, Urine Negative (Negative); Glucose,Urine (UA) Negative (Negative); Ketones,Urine 5 mg/dL (Negative); Nitrite,Urine Negative (Negative); Protein,Urine Negative; RBC,Urine 1 /HPF (0-4); Urine Color Amber (Yellow); Urine Specific Gravity 1.017 (1.001-1.035); WBC,Urine 2 /HPF (0-6)
[2019-07-03 09:56] LABS: Alanine Aminotransferase 9 U/L (16-61); Albumin 1.7 G/DL (3.4-5.0); Alkaline Phosphatase 725 U/L (45-117); Aspartate Amino Transferase 140 U/L (0-37); Blood Urea Nitrogen 22 MG/DL (7-18); Calcium 6.1 MG/DL (8.5-10.1); Estimated Glom Filtration Rate 142 ML/MIN; Glucose 113 MG/DL (74-106); Osmolality,Calculated 280.5 MOS/KG (273-304); Total Protein 4.8 G/DL (6.4-8.3); Troponin I 0.045 NG/ML (0.00-0.045)
[2019-07-03 10:05] LABS: Basophils % 0.3 % (0.0-0.8); Eosinophils # 0.1 10*3/uL (0.0-0.87); Eosinophils % 1.1 % (0.00-10.9); Immature Granulocytes % 19.2 %; Immature Granulocytes Absolute 1.78 #; Lymphocytes % 21.1 % (21.2-54.2); Mean Corpuscular HGB Conc 30.3 GM/DL (32-36); Mean Corpuscular Volume 93.7 FL (87-102); Mean Platelet Volume 12.5 FL (9.6-12.0); Monocytes % 11.8 % (1.7-12.7); NRBC # 0.35 10*3/uL; Neutrophils % 46.5 % (38.7-73.9); Red Blood Count 1.27 MC/CUMM (3.8-5.5); Red Cell Distribution Width 18.5 % (9.3-17.3); White Blood Count 9.3 T/CUMM (4-12)
[2019-07-03 10:06] LABS: Hemoglobin 3.6 GM/DL (14.0-18.0)
[2019-07-03 10:07] LABS: Hematocrit 11.9 VOL% (42.0-52.0); Platelet Count 20 T/CUMM (130-400)
[2019-07-03] MEDS ORDERED: VANCOMYCIN INJ 1,000 MG in SODIUM CHLORIDE 0.9% 250 ML IV STA (10:08)
[2019-07-03 10:24] LABS: Band Neutrophils 8 % (0-10); Eosinophils 4 % (0-10); Hypochromasia 2+; Lymphocytes 20 % (20-55); Microcytosis 2+; Myelocytes 2 %; Nucleated Red Blood Cells 10 (0-5); Platelet Estimate Decreased; Segmented Neutrophils 59 % (50-85); Total Cells Counted 100
[2019-07-03] MEDS ORDERED: AZITHROMYCIN INJ 500 MG in SODIUM CHLORIDE 0.9% 250 ML IV STA (10:26)
[2019-07-03] MEDS ORDERED: methylPREDNISolone SOD SUC 125 MG/2 ML VIAL IV STA (10:26)
[2019-07-03 10:28] LABS: INR 2.5
[2019-07-03 10:29] LABS: PT Patient Result 25.6 SECS (9.8-11.9); Partial Thromboplastin Time 46.4 SECS (23.9-33.8)
[2019-07-03] MEDS ORDERED: SODIUM CHLORIDE 0.9% 1,000 ML IV PRN ×2 (10:50→21:35)
[2019-07-03] MEDS ORDERED: POTASSIUM CHLORIDE RIDER 10 MEQ in PREMIX 1 EACH IV PRN (12:34)
[2019-07-03] MEDS: DEXAMETHASONE 4 MG/1 ML VIAL IV SCH ×2 (13:44→22:16)
[2019-07-03] MEDS: HYDROmorphone 2 MG/1 ML VIAL IV PRN (18:42)
[2019-07-03 21:22] LABS: Hematocrit 21.3 VOL% (42.0-52.0); Hemoglobin 6.8 GM/DL (14.0-18.0)
[2019-07-03] MEDS: VANCOMYCIN INJ 1,000 MG in SODIUM CHLORIDE 0.9% 250 ML IV SCH (22:17)
[2019-07-04] MEDS: HYDROmorphone 2 MG/1 ML VIAL IV PRN ×2 (00:10→05:13)
[2019-07-04] MEDS ORDERED: LORazepam 2 MG/1 ML VIAL IV PRN (03:02)
[2019-07-04] MEDS ORDERED: LORazepam 2 MG/1 ML VIAL ONE (03:07)
[2019-07-04 03:45] LABS: Basophils % 0.4 % (0.0-0.8); Eosinophils # 0.1 10*3/uL (0.0-0.87); Eosinophils % 0.8 % (0.00-10.9); Hematocrit 26.3 VOL% (42.0-52.0); Hemoglobin 8.6 GM/DL (14.0-18.0); Immature Granulocytes % 16.8 %; Immature Granulocytes Absolute 1.61 #; Lymphocytes # 0.9 10*3/uL (1.4-4.0); Lymphocytes % 8.8 % (21.2-54.2); Mean Corpuscular HGB Conc 32.7 GM/DL (32-36); Mean Corpuscular Volume 91.6 FL (87-102); Monocytes % 16.3 % (1.7-12.7); Neutrophils % 56.9 % (38.7-73.9); Red Blood Count 2.87 MC/CUMM (3.8-5.5); Red Cell Distribution Width 15.9 % (9.3-17.3); White Blood Count 9.6 T/CUMM (4-12)
[2019-07-04 03:53] LABS: Platelet Count 15 T/CUMM (130-400)
[2019-07-04 04:13] LABS: Albumin 1.9 G/DL (3.4-5.0); Bilirubin,Total 0.7 MG/DL (0.2-1.0); Osmolality,Calculated 286.1 MOS/KG (273-304); Total Protein 5.2 G/DL (6.4-8.3)
[2019-07-04] MEDS ORDERED: SODIUM CHLORIDE 0.9% 1,000 ML IV PRN (04:16)
[2019-07-04 04:30] LABS: Calcium 5.8 MG/DL (8.5-10.1)
[2019-07-04] MEDS ORDERED: CALCIUM GLUCONATE 1,000 MG in SODIUM CHLORIDE 0.9% 100 ML IV ONE (04:44)
[2019-07-04] MEDS ORDERED: MAGNESIUM SULF RIDER 2 GM in PREMIX 1 EACH IV PRN (04:45)
[2019-07-04] MEDS ORDERED: MAGNESIUM SULF RIDER 4 GM in PREMIX 1 EACH IV PRN (04:45)
[2019-07-04 04:59] LABS: Band Neutrophils 8 % (0-10); Eosinophils 1 % (0-10); Lymphocytes 7 % (20-55); Metamyelocytes 2 %; Myelocytes 2 %; Nucleated Red Blood Cells 8 (0-5); Segmented Neutrophils 69 % (50-85); Total Cells Counted 100
[2019-07-04 05:01] LABS: Hypochromasia Slight; Platelet Estimate Decreased; Tear Drop Cells Few
[2019-07-04 05:02] LABS: Microcytosis 1+; Polychromasia Few
[2019-07-04] MEDS: DEXAMETHASONE 4 MG/1 ML VIAL IV SCH ×3 (05:12→20:45)
[2019-07-04] MEDS: VANCOMYCIN INJ 1,000 MG in SODIUM CHLORIDE 0.9% 250 ML IV SCH (09:06)
[2019-07-04 09:11] LABS: INR 1.7; Partial Thromboplastin Time 39.6 SECS (23.9-33.8)
[2019-07-04] MEDS ORDERED: fentaNYL 50 MCG/HR PATCH TRANSDERM SCH (14:00)
[2019-07-04] MEDS: MORPHINE 4 MG/1 ML VIAL IV PRN (22:47)
[2019-07-05] MEDS: LORazepam 2 MG/1 ML VIAL IV PRN ×2 (03:31→09:11)
[2019-07-05] MEDS: MORPHINE 4 MG/1 ML VIAL IV PRN ×2 (04:41→12:17)
[2019-07-05] MEDS: DEXAMETHASONE 4 MG/1 ML VIAL IV SCH ×3 (04:41→21:21)
[2019-07-05 12:35] VITALS: BP 130/85
== END 2019-07-05 19:55 | disposition hospice, home (50) | DRG 54 ==
LOC: EDUNIT# → N.ED 08:05 → SUATTDRO 11:25 → N.EDINP 11:25 → N.ICU 12:15 → N.2E 07-04 12:36
PROVIDERS: ADMIT Internal Medicine; ATTEND Internal Medicine